=== PATIENT | male | born 2005 | race Caucasian/White ===

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

== ENCOUNTER 2023-08-22 11:27 | Emergency (ER) | payer OTHER, SELFPAY ==
[2023-08-22 11:31] VITALS: BP 135/72; PULSE 73; O2SAT 98
[2023-08-22 12:45] VITALS: BP 122/83; PULSE 70; RESP 18; TEMP 36.3; O2SAT 100; BMI 28.7
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
[2023-08-22 14:26] LABS: IDNOW Serial# 58CA691E; Strep A Nucleic Acid Positive (Negative)
[2023-08-22 14:49] LABS: COVID-19 Test Negative (Negative); IDNOW Serial# 08D9AD1C; IDNOW Serial# 152EDE1D; Influenza A Negative (Negative); Influenza B2 Negative (Negative)
[2023-08-22 16:00] VITALS: RESP 16
--- NOTE | 2023-08-22 16:51 | PC.NURSE ---
called pts mom and informed her pt is going home,awaiting ambulance ride back home.
== END 2023-08-22 17:51 | disposition home or self-care (01) ==
PROVIDERS: Physician Assistant Medical; Emergency Provider Emergency Medicine
DX: J02.0 Streptococcal pharyngitis (principal); L29.9 Pruritus, unspecified; B86 Scabies; Z11.52 Encounter for screening for COVID-19
CPT/HCPCS: 87502; 87635; 87651; 99283

== ENCOUNTER 2023-11-02 18:37 | Emergency (ER) | payer OTHER, SELFPAY ==
[2023-11-02 18:41] VITALS: BP 126/75; PULSE 73; RESP 16; TEMP 36.2; O2SAT 96; BMI 29.0
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
--- NOTE | 2023-11-02 19:30 | PC.NURSE ---
patient brought in from waiting room im here for some increased depression , patient appears in no distress.
[2023-11-02 19:39] LABS: Appearance Urine Clear; Color Urine Yellow; Glucose Urine UA Negative (Negative); Leukocyte Esterase Urine Negative (Negative); Nitrite Urine Negative (Negative); PH 5.5 (5.0-9.0); Urine Blood Negative (Negative); Urine Ketones 15 mg/dL (Negative); Urine Protein Negative (Neg-Trace)
[2023-11-02 19:47] LABS: Amphetamine Screen Urine Not Detected (Not Detect); Barbiturates, Urine Not Detected (Not Detect); Benzodiazepines Screen Urine Not Detected (Not Detect); Buprenorphine Scr Not Detected (Not Detect); Cannabinoid Screen Urine Not Detected (Not Detect); Cocaine Screen Urine POSITIVE (Not Detect); Fentanyl, urine Not Detected (Not Detect); Methadone Screen, Urine Not Detected (Not Detect); Opiate Screen Urine Not Detected (Not Detect); Oxycodone Screen Urine Not Detected (Not Detect); Phencyclidine Screen Urine Not Detected (Not Detect)
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
[2023-11-02 21:47] LABS: MANUAL DIFF FLAG NO
[2023-11-02 21:48] LABS: Basophils Absolute Auto 0.1 X10*3/uL (0.0-0.2); Basophils Percent Auto 0.6 % (0-2); Eosinophils Absolute Auto 0.7 X10*3/uL (0.0-0.4); Eosinophils Percent Auto 6.4 % (0-4); Hematocrit 39.9 % (42.0-52.0); Hemoglobin 14.1 g/dl (14.0-18.0); Imm Gran Abs Auto 0.03 X10*3/uL (0.00-0.03); Imm Gran Pct Auto 0.3 % (0.0-0.4); Lymphocytes Absolute Auto 2.6 X10*3/uL (1.2-4.9); Mean Corpuscular HGB Conc 35.3 g/dl (31.0-36.0); Mean Corpuscular Hemoglobin 30.1 pg (27.0-33.0); Mean Corpuscular Volume 85.3 fL (80.0-98.0); Mean Platelet Volume 9.5 fL (9.4-12.4); Monocytes Absolute Auto 0.8 X10*3/uL (0.1-1.2); Monocytes Percent Auto 7.4 % (2-11); Neutrophils Absolute Auto 6.3 x10*3/uL (2.0-8.3); Neutrophils Percent Auto 60.3 % (45-73); Platelet Count 258 X10*3/uL (160-400); Red Blood Count 4.68 X10*6/uL (4.60-5.80); Red Cell Distribution Width 12.2 % (11.0-16.0); White Blood Count 10.4 X10*3/uL (4.8-10.8)
[2023-11-02 22:05] LABS: Alanine Aminotransferase 30 U/L (0-40); Albumin Level 4.5 g/dL (3.5-5.0); Alkaline Phosphatase 82 U/L (39-117); Anion Gap 12 (12-20); Aspartate Amino Transferase 23 U/L (5-37); Bilirubin Total 1.3 mg/dL (0.0-1.0); Blood Urea Nitrogen 8 mg/dL (9-16); Calcium 9.8 mg/dL (8.4-10.2); Carbon Dioxide 26 mmol/L (22-29); Chloride 105 mmol/L (96-108); Creatinine Clr Calc Pharmacy 174.3; Estimated Glomerular Filt Rate > 60; Ethanol < 10 mg/dL; Glucose Random 79 mg/dL (60-115); Lipase 17 U/L (8-78); Potassium 3.1 mmol/L (3.3-5.1); Salicylate < 5.0 mg/dL (15-30); Sodium 140 mmol/L (135-145); Total Protein 7.6 g/dL (6.5-8.0)
--- NOTE | 2023-11-03 03:49 | PC.NURSE ---
Took over care from Kiera, pt is sleeping at this time.
[2023-11-03 05:48] VITALS: BP 118/77; PULSE 68; RESP 17; TEMP 36.4; O2SAT 99
--- NOTE | 2023-11-03 06:13 | PC.NURSE ---
Notified provider of skin concern and pt itching his scalp. Provider will come to assess.
--- NOTE | 2023-11-03 06:16 | PC.NURSE ---
Pt is sleeping , no sign of restlessness.
[2023-11-03 08:17] VITALS: BP 136/87; PULSE 94; RESP 16; TEMP 36.9; O2SAT 98
[2023-11-03] MEDS: diphenhydrAMINE HCL 25 MG CAPSULE 50 MG PO (10:12)
[2023-11-03] MEDS: Potassium Chloride Packet 20 MEQ PACKET 40 MEQ PO (10:13)
[2023-11-03] MEDS: Hydrocortisone 1 % Ointment 28.35 GM TUBE 1 APPL TOPICAL (10:20)
[2023-11-03 14:03] VITALS: BP 136/87; PULSE 94; RESP 16; TEMP 36.9; O2SAT 98
== END 2023-11-03 14:04 | disposition home or self-care (01) ==
PROVIDERS: Physician Assistant Medical; Emergency Provider Emergency Medicine
DX: F33.1 Major depressive disorder, recurrent, moderate (principal); Z79.899 Other long term (current) drug therapy
CPT/HCPCS: 36415; 80053; 80179; 80307; 81003; 82550; 83690; 83735; 85025; 99284; S9485

== ENCOUNTER 2024-01-11 17:32 | Emergency (ER) | payer OTHER, SELFPAY ==
[2024-01-11 17:48] VITALS: BP 140/80; BP 151/78; PULSE 83; PULSE 90; RESP 16; TEMP 36.8; O2SAT 95; O2SAT 96; BMI 27.5
[2024-01-11 18:00] VITALS: BP 151/78; PULSE 83; RESP 16; TEMP 36.8; O2SAT 95
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
[2024-01-11 18:31] LABS: MANUAL DIFF FLAG NO
[2024-01-11 18:37] LABS: Appearance Urine Clear; Color Urine Dark Yellow; Glucose Urine UA Negative (Negative); Leukocyte Esterase Urine Negative (Negative); Nitrite Urine Negative (Negative); PH 5.5 (5.0-9.0); Specific Gravity - Urine >= 1.030 (1.005-1.025); Urine Blood Negative (Negative); Urine Ketones 15 mg/dL (Negative); Urine Protein Negative (Neg-Trace)
[2024-01-11 18:39] LABS: Basophils Absolute Auto 0.1 X10*3/uL (0.0-0.2); Basophils Percent Auto 1.4 % (0-2); Eosinophils Absolute Auto 0.9 X10*3/uL (0.0-0.4); Eosinophils Percent Auto 11.8 % (0-4); Hematocrit 40.7 % (42.0-52.0); Hemoglobin 14.6 g/dl (14.0-18.0); Imm Gran Abs Auto 0.03 X10*3/uL (0.00-0.03); Imm Gran Pct Auto 0.4 % (0.0-0.4); Lymphocytes Percent Auto 27.7 % (20-40); Mean Corpuscular HGB Conc 35.9 g/dl (31.0-36.0); Mean Corpuscular Hemoglobin 30.9 pg (27.0-33.0); Monocytes Absolute Auto 0.6 X10*3/uL (0.1-1.2); Monocytes Percent Auto 7.6 % (2-11); Neutrophils Absolute Auto 3.7 x10*3/uL (2.0-8.3); Neutrophils Percent Auto 51.1 % (45-73); Platelet Count 230 X10*3/uL (160-400); Red Blood Count 4.73 X10*6/uL (4.60-5.80); Red Cell Distribution Width 12.3 % (11.0-16.0); White Blood Count 7.2 X10*3/uL (4.8-10.8)
[2024-01-11 18:49] LABS: Amphetamine Screen Urine Not Detected (Not Detect); Barbiturates, Urine Not Detected (Not Detect); Benzodiazepines Screen Urine Not Detected (Not Detect); Buprenorphine Scr Not Detected (Not Detect); Cannabinoid Screen Urine Not Detected (Not Detect); Cocaine Screen Urine POSITIVE (Not Detect); Fentanyl, urine Not Detected (Not Detect); Methadone Screen, Urine Not Detected (Not Detect); Opiate Screen Urine Not Detected (Not Detect); Oxycodone Screen Urine Not Detected (Not Detect); Phencyclidine Screen Urine Not Detected (Not Detect)
[2024-01-11 18:54] LABS: Alanine Aminotransferase 28 U/L (0-40); Albumin Level 4.6 g/dL (3.5-5.0); Alkaline Phosphatase 84 U/L (39-117); Anion Gap 15 (12-20); Aspartate Amino Transferase 27 U/L (5-37); Bilirubin Total 0.6 mg/dL (0.0-1.0); Blood Urea Nitrogen 13 mg/dL (9-16); Calcium 9.8 mg/dL (8.4-10.2); Carbon Dioxide 21 mmol/L (22-29); Chloride 109 mmol/L (96-108); Creatinine Clr Calc Pharmacy 167.9; Estimated Glomerular Filt Rate > 60; Ethanol < 10 mg/dL; Glucose Random 88 mg/dL (60-115); Sodium 141 mmol/L (135-145); Total Protein 7.9 g/dL (6.5-8.0)
[2024-01-11 22:00] VITALS: RESP 16
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
--- NOTE | 2024-01-12 06:17 | PC.NURSE ---
Patient slept through the night, no distress observed/reported, med rec completed/pending provider's approval, disposition per care team is [facility] follow up, VSS, no behavior and safety issue, will continue to monitor
[2024-01-12 08:02] VITALS: BP 121/79; PULSE 72; RESP 14; TEMP 36.6; O2SAT 97
[2024-01-12 09:36] VITALS: BP 130/60; PULSE 80; RESP 14; TEMP 36.8; O2SAT 98
--- NOTE | 2024-01-12 11:04 | MHC.CARE ---
RAD Team made a referral for this PT, to [facility] for Outpatient Services. Will contact to verify confirmation.
== END 2024-01-12 09:39 | disposition home or self-care (01) ==
PROVIDERS: Emergency Provider Internal Medicine
DX: F32.A Depression, unspecified (principal); F84.0 Autistic disorder; Z63.8 Other specified problems related to primary support group; Z62.820 Parent-biological child conflict
CPT/HCPCS: 36415; 80053; 80307; 81003; 85025; 99285; S9485

== ENCOUNTER 2024-01-18 02:56 | Inpatient (IN) | payer OTHER, SELFPAY ==
--- NOTE | 2024-01-18 | ECG_ITS ---
Test Reason : RULE OUT QTC PROLONGATION Blood Pressure : / mmHG Vent. Rate : 051 BPM Atrial Rate : 051 BPM P-R Int : 142 ms QRS Dur : 084 ms QT Int : 432 ms P-R-T Axes : 018 078 037 degrees QTc Int : 398 ms Sinus bradycardia Otherwise normal ECG When compared with ECG of 05-OCT-2022 13:56, No significant change was found Referred By: Noni Alcantar Electronically Signed By:IDRIS REYES
[2024-01-18 03:08] VITALS: BP 122/74; BP 132/74; PULSE 74; PULSE 80; RESP 18; TEMP 36.4; O2SAT 100; O2SAT 98; BMI 28.2
--- NOTE | 2024-01-18 04:13 | ED.PSYCH ---
HPI - Psych General Chief Complaint: Psychiatric Symptoms Stated Complaint: crisis Time Seen by Provider: 01/18/24 04:13 Source: patient and EMS Mode of arrival: EMS Limitations: no limitations History of Present Illness ED Provider: Dr. Noni Alcantar HPI Narrative: Patient comes to the emergency room via ambulance. Patient states that he is under lot of stress, states that his mother recently had a stroke and his mother's sick at home. According to EMS, earlier today, the EMS picked up the patient at his house, the mother reported that the patient may gestures of suicide attempt by putting a clothes sheet rock hanger around his neck as ingesting he was going to hang himself. Patient states that he does have suicidal thoughts, stating that his mother dictates his suicidal thoughts. Patient admits to using crack cocaine and alcohol Related Data Home Medications ?Medication ?Instructions ?Recorded ?Confirmed fluoxetine 20 mg tablet 20 mg PO DAILY 05/02/22 01/11/24 risperidone 2 mg tablet 2 mg PO BEDTIME 11/03/23 01/11/24 Allergies Allergy/AdvReac Type Severity Reaction Status Date / Time No Known Allergies Allergy Verified 01/18/24 03:11 Review of Systems Review of Systems: Constitutional : No Weight loss, No Fever, No Chills, No Night Sweats, No Fatigue, No Malaise ENT/Mouth : No Hearing loss, No Ear Pain, No Nasal Congestion, No Sinus Pain, No Hoarseness, No sore throat, No Rhinorrhea, No Swallowing Difficulty Eyes: No Eye Pain, No Swelling, No Redness, No Foreign Body, No Discharge, No Vision Changes Cardiovascular : No Chest Pain, No SOB, No Dyspnea on Exertion, No Orthopnea, No Edema, No Palpitations Respiratory : No Cough, No Sputum, No Wheezing, No Smoke Exposure, No Dyspnea Gastrointestinal : No Nausea, No Vomiting, No Diarrhea, No Constipation, No abdominal Pain, No Hematochezia, No Melena Genitourinary : no irregular bleeding, No Dysuria, No Urinary Frequency, No Hematuria, No Urinary Incontinence, No Urgency, No Flank Pain, No Urinary Flow Changes, No Hesitancy Musculoskeletal : No joint pain, No Myalgias, No Joint Swelling Skin : No Skin Lesions, No rash Neuro : No Weakness, No Numbness, No Paresthesias, No Loss of Consciousness, No Dizziness, No Headache Psych : Complaining of anxiety, suicidal thoughts, admits to using crack cocaine and alcohol Heme/Lymph: No Bruising, No Bleeding,No Lymphadenopathy Endocrine : No Polyuria, No Polydipsia, No Temperature Intolerance PMF Past Medical History Medical History Substance abuse Autism Social History Social History Household Members: Family Housing: Apartment Do you presently have visiting nurse or other home services: No Comment: [phone] Patient Tobacco Use Status: Never used Tobacco Tobacco use type: Cigarette Cigarettes Per Day: 5 Years Smoked: 1 e-Cigarette/Vaping Use: Never Used Second Hand Smoke Exposure: Yes Substance Use Type: Crack/Cocaine and Caffiene Advance Directives: No Advance Directives Information Provided: Yes Do you have a plan to hurt others: No Plan service: No Current occupational status: student Sexual orientation: Don't Know Physical Exam Vital Signs: Vital Signs: Last Vital Signs Temp 97.6 F 01/18/24 03:08 Pulse 74 01/18/24 03:08 Resp 18 01/18/24 03:08 BP 122/74 01/18/24 03:08 Pulse Ox 98 01/18/24 03:08 O2 Del Method Room Air 01/18/24 03:08 BMI result Body Mass Index 28.2 Const: Other: Appearance: Alert. Oriented X3. No acute distress. Eyes: Pupils equal, round and reactive to light. ENT: Pharynx normal. Neck: Normal inspection. Neck supple. No lymph nodes noted. No crepitus CVS: Normal heart rate and rhythm. Pulses normal. Normal S1 and S2 Respiratory: No respiratory distress. Breath sounds normal. No Wheezing. No rales Abdomen: Soft and nontender. No rigidity. No distention. Skin: Skin warm and dry. Normal skin color. Normal skin turgor. Patient has multiple excoriations from eczema in both arms Extremities: No lower extremity edema. No Lacerations. No Rash Neuro: Oriented X 3. No motor deficit. No sensory deficit. Moving all extremities. No slurred speech. CN 2 through 12 grossly intact Psych: calm, cooperative, normal affect Course Course Course Narrative: -all of patient's labs pending -patient is on a Section 12 started in the community -patient was given hydrocortisone topical for his arms -care team consult pending -physician observation started at 04:17 Medical Decision Making Differential Diagnosis Differential Diagnoses: The differential diagnosis associated with the presentation includes (Polysubstance abuse, alcohol abuse, anxiety, depression) Admission/Observation Consideration of admission/observation: Escalation of care including admission/observation considered (Patient is on a Section 12 waiting to be seen by the care team to determine his disposition) Critical Care Time Critical Care Time Critical Care Time: Yes Total Critical Care Time: 30 Attestation: I have personally provided critical care time. Time includes review of lab data, radiology results, discussion with consultants, and monitoring for potential decompensation. Intervention performed as documented. Discharge Plan Discharge Clinical Impression: Acute anxiety, Suicidal ideation Patient Disposition: Still a Patient Prescriptions: No Action fluoxetine 20 mg Tablet 20 mg PO DAILY risperidone 2 mg tablet 2 mg PO BEDTIME Print Language: [place]
[2024-01-18 04:38] LABS: Basophils Absolute Auto 0.1 X10*3/uL (0.0-0.2); Basophils Percent Auto 1.4 % (0-2); Eosinophils Percent Auto 11.2 % (0-4); Hematocrit 39.7 % (42.0-52.0); Hemoglobin 14.3 g/dl (14.0-18.0); Imm Gran Abs Auto 0.02 X10*3/uL (0.00-0.03); Imm Gran Pct Auto 0.2 % (0.0-0.4); Lymphocytes Absolute Auto 2.7 X10*3/uL (1.2-4.9); Lymphocytes Percent Auto 31.2 % (20-40); MANUAL DIFF FLAG NO; Mean Corpuscular Hemoglobin 31.1 pg (27.0-33.0); Mean Corpuscular Volume 86.3 fL (80.0-98.0); Mean Platelet Volume 9.6 fL (9.4-12.4); Monocytes Absolute Auto 0.8 X10*3/uL (0.1-1.2); Neutrophils Absolute Auto 4.1 x10*3/uL (2.0-8.3); Platelet Count 209 X10*3/uL (160-400); Red Cell Distribution Width 12.6 % (11.0-16.0); White Blood Count 8.6 X10*3/uL (4.8-10.8)
[2024-01-18 04:58] LABS: Appearance Urine Clear; Color Urine Dark Yellow; Glucose Urine UA Negative (Negative); Leukocyte Esterase Urine Trace (Negative); Nitrite Urine Negative (Negative); Specific Gravity - Urine >= 1.030 (1.005-1.025); UMIC TRIGGER UACC YES; Urine Blood Negative (Negative); Urine Ketones Trace mg/dL (Negative); Urine Protein Trace mg/dL (Neg-Trace)
[2024-01-18 05:01] LABS: Bacteria Urine None Seen (None Seen); Hyaline Casts Urine 0-2 /LPF (0-2); RBC Urine 0-2 /HPF (0-2); Squamous Epithelial Cell Urine 0-2 /HPF (0-2); WBC Urine 0-5 /HPF (0-5)
[2024-01-18 05:02] LABS: Alanine Aminotransferase 24 U/L (0-40); Albumin Level 4.4 g/dL (3.5-5.0); Alkaline Phosphatase 76 U/L (39-117); Anion Gap 14 (12-20); Aspartate Amino Transferase 29 U/L (5-37); Bilirubin Direct 0.4 mg/dL (0.0-0.5); Bilirubin Total 1.2 mg/dL (0.0-1.0); Blood Urea Nitrogen 11 mg/dL (9-16); Carbon Dioxide 24 mmol/L (22-29); Chloride 108 mmol/L (96-108); Creatinine Clr Calc Pharmacy 158.5; Estimated Glomerular Filt Rate > 60; Ethanol < 10 mg/dL; Glucose Random 84 mg/dL (60-115); Potassium 3.6 mmol/L (3.3-5.1); Sodium 142 mmol/L (135-145); Total Protein 7.4 g/dL (6.5-8.0)
[2024-01-18 05:08] LABS: Amphetamine Screen Urine Not Detected (Not Detect); Barbiturates, Urine Not Detected (Not Detect); Benzodiazepines Screen Urine Not Detected (Not Detect); Buprenorphine Scr Not Detected (Not Detect); Cannabinoid Screen Urine Not Detected (Not Detect); Cocaine Screen Urine POSITIVE (Not Detect); Fentanyl, urine Not Detected (Not Detect); Methadone Screen, Urine Not Detected (Not Detect); Opiate Screen Urine Not Detected (Not Detect); Oxycodone Screen Urine Not Detected (Not Detect); Phencyclidine Screen Urine Not Detected (Not Detect)
--- NOTE | 2024-01-18 08:53 | PC.NURSE ---
Assumed care of patient at 0645, patient appears to be in no apparent distress this am, ambulating with steady gait around BH pod, respirations even and unlabored, offers no complaints to this RN. Continue plan of care for care team [place]
--- NOTE | 2024-01-18 14:02 | MHC.EDTECH ---
patient asked for snack. Pudding provided.
[2024-01-18 16:50] VITALS: BP 137/78; PULSE 71; RESP 16; TEMP 36.8; O2SAT 98
[2024-01-18 18:28] VITALS: BMI 26.7
--- NOTE | 2024-01-18 18:52 | PC.NURSE ---
pt arrived on the unit at 1645 on a CV. Skin check performed, vitals obtained and pt oriented to unit. Pt was pleasant, calm, and cooperative during admission interview. Pt reports he lives w/ mom and states, My mother got sick and it it really messed me up. I've been depressed for a little while but its already getting better. I;ve talked to some of the nurses and patients downstairs and it's helped . Pt denies current anxiety/si/hi/avh and reports some depression. He reports occasional marijuana and cocaine use, last use 'a few days ago . Pt has HX of unspecified impulse disorder and ASD
[2024-01-18] MEDS: traZODone HCL 50 MG TABLET PO (21:20)
[2024-01-19 08:16] VITALS: BP 108/61; PULSE 57; RESP 16; TEMP 36.6; O2SAT 97
[2024-01-19] MEDS: FLUoxetine HCl 20 MG CAPSULE PO (08:41)
[2024-01-19 08:53] LABS: Cholesterol 131 mg/dL (<200); HDL Cholesterol 46 mg/dL (>40); LDL Cholesterol Calculated 59 mg/dL (<100); Magnesium 2.3 mg/dL (1.6-2.6); Triglycerides 133 mg/dL (<150)
[2024-01-19 08:59] LABS: Estimated Average Glucose 100 mg/dL; Hemoglobin A1c % 5.1 % (<6.0)
[2024-01-19 09:10] LABS: Free T4 (Free Thyroxine) 0.84 ng/dL (0.71-1.85); Thyroid Stimulating Hormone 1.14 uIU/mL (0.32-4.0)
[2024-01-19 09:22] LABS: Folate 5.7 ng/mL (> or = 4.0); Vitamin B12 403 pg/mL (200-900)
--- NOTE | 2024-01-19 10:35 | P.HPPS_ITS ---
HPI Date of Service: 01/19/24 Chief Complaint: Depression,SI,crack cocaine use,alcohol use Sources of Information: patient interviewed, chart reviewed and crisis/core team assessment reviewed HPI Subjective Notes: [place] Warning and Conditional Voluntary Narrative: Patient is a 18-year-old male with history of autism, depression, intermittent cocaine abuse who presents to the hospital for suicidal ideation in the face of his mother/primary school psychometrist becoming sick. Patient is somewhat of a limited historian due to autism. He says that he was feeling very depressed at home 4 weeks, because his mother was sick. He said he became suicidal and had the thought to hang himself but he was too afraid to . Patient says that he no longer has any suicidal ideation and says I felt better when I got to the hospital. Patient reports that he takes Prozac and trazodone. He says he stopped Risperdal because it made him too tired. He does not want it anymore and does not think he needs it. Patient reports he took it to help him with his mood swings and it did help however feels that he is doing better now and does not need it. He does however agree to have it changed to a p.r.n. and available if he starts to get angry. ED note reports his mother recently had a stroke; According to EMS, earlier today, mother reported that the patient made SI gestures by putting a clothes flitch hanger around his neck as if he was going to hang himself. Past Psychiatric History: Past hospitalization 09/2022 on [facility] for agitation, yelling and breaking things; reports says he had a knife and was threatening others; attempted to strangle himself with a bed sheet Assessed by crisis 2021 in the ED for a couple nights for SI/HI. SA: a couple times. reports first was in 8th grade, most recent was in ED on the way in the hospital for the present admission. has only ever tried via strangulation. SIB: denies outpt: no h/o outpt mental health Tx. material control clerk dose meds. Medical Evaluation Reviewed: Yes [facility] Medical History (Updated 01/19/24 @ 18:31 by Edvin Otero MD) MDD (major depressive disorder), recurrent severe, without psychosis Substance abuse Autism Family History: father - h/o crack cocaine, tobacco mother - tobacco Social History: lives with mother in an apartment in [place]. dropped out of school after 10th grade. does not work. born in [place] and raised in [place]. has no contact with his father. Substance History: Intermittent cocaine abuse Trauma History: report h/o bullying at school Diagnostics Vital Signs (24Hr): Vital Signs - 24 hr 01/18/24 16:50 Temperature 98.3 F Pulse Rate 71 Respiratory Rate 16 Blood Pressure 137/78 Pulse Oximetry 98 Oxygen Delivery Method Room Air BMI result Body Mass Index 26.7 Labs 01/18/24 04:33 01/18/24 04:32 Labs: Laboratory Results - last 48 hr 01/18/24 01/18/24 01/18/24 04:32 04:33 04:47 WBC 8.6 RBC 4.60 Hgb 14.3 Hct 39.7 L MCV 86.3 MCH 31.1 MCHC 36.0 RDW 12.6 Plt Count 209 MPV 9.6 Immature Gran % (Auto) 0.2 Neut % (Auto) 47.0 Lymph % (Auto) 31.2 [place] % (Auto) 9.0 Eos % (Auto) 11.2 H Baso % (Auto) 1.4 Lymph # (Auto) 2.7 [place] # (Auto) 0.8 Eos # (Auto) 1.0 H Baso # (Auto) 0.1 Abs Immat Gran (auto) 0.02 Absolute Neuts (auto) 4.1 Absolute Nucleated RBC 0.000 Nucleated RBC % (auto) 0.0 Sodium 142 Potassium 3.6 Chloride 108 Carbon Dioxide 24 Anion Gap 14 BUN 11 Creatinine 0.76 Estim Creat Clear Calc 158.5 Estimated GFR > 60 Random Glucose 84 Estimat Average Glucose Hemoglobin A1c % Calcium 10.0 Magnesium Total Bilirubin 1.2 H Direct Bilirubin 0.4 AST 29 ALT 24 Alkaline Phosphatase 76 Total Protein 7.4 Albumin 4.4 Triglycerides Cholesterol LDL Cholesterol, Calc HDL Cholesterol Vitamin B12 Folate TSH Free T4 Urine Color Urine Appearance Urine pH Ur Specific [place] Urine Protein Urine Glucose (UA) Urine Ketones Urine Blood Urine Nitrite Ur Leukocyte Esterase Urine RBC Urine WBC Ur Squamous Epith Cells Urine Bacteria Hyaline Casts Urine Opiates Screen Not Detected Ur Buprenorphine Scrn Not Detected Ur Oxycodone Screen Not Detected Urine Methadone Screen Not Detected Urine Fentanyl Screen Not Detected Ur Barbiturates Screen Not Detected Ur Phencyclidine Scrn Not Detected Ur Amphetamines Screen Not Detected U Benzodiazepines Scrn Not Detected Urine Cocaine Screen POSITIVE H U Marijuana (THC) Screen Not Detected Ethyl Alcohol < 10 01/18/24 01/19/24 04:51 07:58 WBC RBC Hgb Hct MCV MCH MCHC RDW Plt Count MPV Immature Gran % (Auto) Neut % (Auto) Lymph % (Auto) [place] % (Auto) Eos % (Auto) Baso % (Auto) Lymph # (Auto) [place] # (Auto) Eos # (Auto) Baso # (Auto) Abs Immat Gran (auto) Absolute Neuts (auto) Absolute Nucleated RBC Nucleated RBC % (auto) Sodium Potassium Chloride Carbon Dioxide Anion Gap BUN Creatinine Estim Creat Clear Calc Estimated GFR Random Glucose Estimat Average Glucose 100 Hemoglobin A1c % 5.1 Calcium Magnesium 2.3 Total Bilirubin Direct Bilirubin AST ALT Alkaline Phosphatase Total Protein Albumin Triglycerides 133 Cholesterol 131 LDL Cholesterol, Calc 59 HDL Cholesterol 46 Vitamin B12 403 Folate 5.7 TSH 1.14 Free T4 0.84 Urine Color Dark Yellow Urine Appearance Clear Urine pH 6.0 Ur Specific [place] >= 1.030 H Urine Protein Trace Urine Glucose (UA) Negative Urine Ketones Trace Urine Blood Negative Urine Nitrite Negative Ur Leukocyte Esterase Trace H Urine RBC 0-2 Urine WBC 0-5 Ur Squamous Epith Cells 0-2 Urine Bacteria None Seen Hyaline Casts 0-2 Urine Opiates Screen Ur Buprenorphine Scrn Ur Oxycodone Screen Urine Methadone Screen Urine Fentanyl Screen Ur Barbiturates Screen Ur Phencyclidine Scrn Ur Amphetamines Screen U Benzodiazepines Scrn Urine Cocaine Screen U Marijuana (THC) Screen Ethyl Alcohol Meds/Allergies Meds Home Medications ?Medication ?Instructions ?Recorded ?Confirmed ?Type fluoxetine 20 mg tablet 20 mg PO DAILY 05/02/22 01/18/24 History Allergies Allergies Allergy/AdvReac Type Severity Reaction Status Date / Time No Known Allergies Allergy Verified 01/18/24 03:11 Mental Status Exam Mental Status Exam Narrative: Pt is alert and oriented; behavior is cooperative, friendly and calm; patient is not in distress; dressed in casual attire with unkempt hair but adequate hygiene; mood is described as good and affect congruent; eye contact appropriate; Speech is loud, but normal rate; staccato; not pressured; no psychomotor agitation/retardation present; thought process is concrete but goal oriented and logical. Thought content is on his mother's illness; otherwise pertinent to relevant topics and without any delusional content, paranoid ideations or grandiosity; denies any SI/HI. There is no evidence of perceptual disturbance. Patients insight and judgment impaired but possibly back to baseline. Assessment & Plan Assessment & Plan (1) Autism spectrum disorder: Status: Acute Code(s): F84.0 - Autistic disorder (2) MDD (major depressive disorder), recurrent severe, without psychosis: Status: Acute Code(s): F33.2 - Major depressive disorder, recurrent severe without psychotic features (3) Impulse control disorder, unspecified: Status: Acute Code(s): F63.9 - Impulse disorder, unspecified Plan Patient is a 18-year-old male with history of autism, depression, intermittent cocaine abuse who presents to the hospital for suicidal ideation in the face of his mother/primary school psychometrist becoming sick. Patient is somewhat of a limited historian due to autism. He says that he was feeling very depressed at home 4 weeks, because his mother was sick. He said he became suicidal and had the thought to hang himself but he was too afraid to . Patient says that he no longer has any suicidal ideation and says I felt better when I got to the hospital. Patient reports that he takes Prozac and trazodone. He says he stopped Risperdal because it made him too tired. He does not want it anymore and does not think he needs it. Patient reports he took it to help him with his mood swings and it did help however feels that he is doing better now and does not need it. He does however agree to have it changed to a p.r.n. and available if he starts to get angry. -ED note reports his mother recently had a stroke; According to EMS, earlier today, mother reported that the patient made SI gestures by putting a clothes flitch hanger around his neck as if he was going to hang himself. Clinical reasoning/formulation: Patient has autism and intermittent mood lability, becoming emotionally reactive and sometimes dangerous. It has not clear if he has things under control enough to handle Risperdal just as a p.r.n. or if he needs a scheduled; however at this time he is refusing it other than as needed. He said he knows he will not be depressed when he goes home because his mother is now able to help him; it has not clear if patient understands mother's medical illness and if she is able to attend to him as she has in the past. Will gather collateral. Of note, he has been with appropriate behavior and impulse control on the unit, polite and appropriate with peers and staff. Plan: CV Q 15 minute checks Continue Prozac 20 mg daily Risperdal 1 mg b.i.d. p.r.n. for agitation; Patient refuses scheduled Risperdal however agrees to have it changed to p.r.n. Gather collateral Patient educated on: diagnosis, medication risk/benefits and therapeutic strategies Informed Consent: understands, does not understand and further education needed Reason for continued inpatient stay Substantial Risk for: rapid decompensation Statement Statement: I have reviewed the history and physical and performed a pertinent examination on my patient. No changes have occurred unless specified. If the History and Physical was not performed prior to admission, the Hospitalist's service will be consulted for completing the admission physical. Time Spent With Patient Time: Total time managing care of this patient today ____ minutes.
[2024-01-19 20:00] VITALS: BP 102/60; PULSE 69; RESP 16; TEMP 36.3; O2SAT 97
[2024-01-20 07:58] VITALS: BP 119/67; PULSE 61; RESP 18; TEMP 36.4; O2SAT 98
[2024-01-20] MEDS: FLUoxetine HCl 20 MG CAPSULE PO (08:32)
[2024-01-20 20:00] VITALS: BP 110/60; PULSE 69; TEMP 36.2; O2SAT 98
--- NOTE | 2024-01-20 23:03 | HO.PSYCHPN ---
Subjective Subjective Date of Service: 01/20/24 Reason For Visit: Depression,SI,crack cocaine use,alcohol use Interim History: met with patient; discussed with team pt says mood is great and that he's sleeping well. Says no anger problems. Denies any SI or AVH. In group, staff reported he referenced masturbation and how he knows not to do in public. Denies cocaine use, though in UDS. Pt has been in good behavioral/impulse control. Mental Status Exam Mental Status Exam Narrative: Pt is alert and oriented; behavior is cooperative, friendly and calm; patient is not in distress; dressed in casual attire with unkempt hair but adequate hygiene; mood is described as good and affect congruent; eye contact appropriate; Speech is loud, but normal rate; staccato; not pressured; no psychomotor agitation/retardation present; thought process is concrete but goal oriented and logical. Thought content is on his mother's illness; otherwise pertinent to relevant topics and without any delusional content, paranoid ideations or grandiosity; denies any SI/HI. There is no evidence of perceptual disturbance. Patients insight and judgment impaired but possibly back to baseline. Diagnostics Vital Signs (24Hr): Vital Signs - 24 hr 01/20/24 07:58 01/20/24 20:00 Temperature 97.5 F 97.1 F Pulse Rate 61 69 Respiratory Rate 18 Blood Pressure 119/67 110/60 Pulse Oximetry 98 98 Oxygen Delivery Method Room Air Room Air BMI result Body Mass Index 26.7 Labs 01/18/24 04:33 01/18/24 04:32 Labs: Laboratory Results - last 48 hr 01/19/24 07:58 Estimat Average Glucose 100 Hemoglobin A1c % 5.1 Magnesium 2.3 Triglycerides 133 Cholesterol 131 LDL Cholesterol, Calc 59 HDL Cholesterol 46 Vitamin B12 403 Folate 5.7 TSH 1.14 Free T4 0.84 Medications Medications Current Medications Acetaminophen (Acetaminophen 325 Mg Tablet) 650 mg PO Q6H PRN PRN Reason: Headache/Pain Mild Scale (1-3) Al Hydroxide/Mg Hydroxide (Magnesium Hydrox/Alum Hydrox 30 Ml Oral.Susp) 30 ml PO Q6H PRN PRN Reason: Heartburn/Nausea Fluoxetine HCl (Fluoxetine Hcl 20 Mg Capsule) 20 mg PO DAILY [facility] Last Admin: 01/20/24 08:32 Dose: 20 mg Hydroxyzine HCl (Hydroxyzine Hcl 25 Mg Tablet) 25 mg PO Q6H PRN PRN Reason: Anxiety Magnesium Hydroxide (Milk Of Magnesia 30 Ml Oral.Susp) 30 ml PO DAILY PRN PRN Reason: Constipation Multi-Ingred Cream/Lotion/Oil/Oint (Mineral Oil/Petrolatum,White 106 Gm Tube) 1 appl TOPICAL TID PRN; Protocol PRN Reason: dry skin Nicotine (Nicotine 21 Mg Patch.Td24) 21 mg TRANSDERMA DAILY PRN PRN Reason: nicotine cravings Nicotine Polacrilex (Nicotine Polacrilex 2 Mg Gum) 4 mg BUCCAL Q2H PRN PRN Reason: Nicotine Cravings Risperidone (Risperidone 1 Mg Tablet) 1 mg PO TID PRN PRN Reason: anger/agitation Trazodone HCl (Trazodone Hcl 50 Mg Tablet) 50 mg PO BEDTIME MRX1 PRN PRN Reason: Insomnia Last Admin: 01/18/24 21:20 Dose: 50 mg Allergies Allergies Allergy/AdvReac Type Severity Reaction Status Date / Time No Known Allergies Allergy Verified 01/18/24 03:11 Assessment & Plan Assessment & Plan (1) Autism spectrum disorder: Status: Acute Code(s): F84.0 - Autistic disorder (2) MDD (major depressive disorder), recurrent severe, without psychosis: Status: Acute Code(s): F33.2 - Major depressive disorder, recurrent severe without psychotic features (3) Impulse control disorder, unspecified: Status: Acute Code(s): F63.9 - Impulse disorder, unspecified Plan Patient is a 18-year-old male with history of autism, depression, intermittent cocaine abuse who presents to the hospital for suicidal ideation in the face of his mother/primary investigative analyst becoming sick. Patient is somewhat of a limited historian due to autism. He says that he was feeling very depressed at home 4 weeks, because his mother was sick. He said he became suicidal and had the thought to hang himself but he was too afraid to . Patient says that he no longer has any suicidal ideation and says I felt better when I got to the hospital. Patient reports that he takes Prozac and trazodone. He says he stopped Risperdal because it made him too tired. He does not want it anymore and does not think he needs it. Patient reports he took it to help him with his mood swings and it did help however feels that he is doing better now and does not need it. He does however agree to have it changed to a p.r.n. and available if he starts to get angry. -ED note reports his mother recently had a stroke; According to EMS, earlier today, mother reported that the patient made SI gestures by putting a clothes knife changer around his neck as if he was going to hang himself. Clinical reasoning/formulation: Patient has autism and intermittent mood lability, becoming emotionally reactive and sometimes dangerous. It has not clear if he has things under control enough to handle Risperdal just as a p.r.n. or if he needs a scheduled; however at this time he is refusing it other than as needed. He said he knows he will not be depressed when he goes home because his mother is now able to help him; it has not clear if patient understands mother's medical illness and if she is able to attend to him as she has in the past. Will gather collateral. Of note, he has been with appropriate behavior and impulse control on the unit, polite and appropriate with peers and staff. Hospital course: 01/19 pt says mood is great and that he's sleeping well. Says no anger problems. Denies any SI or AVH. In group, staff reported he referenced masturbation and how he knows not to do in public. Denies cocaine use, though in UDS. Pt has been in good behavioral/impulse control even though not taking scheduled Risperdal -not sure about dispo and if he can return home; team working on gathering collateral. Plan: CV Q 15 minute checks Continue Prozac 20 mg daily Risperdal 1 mg b.i.d. p.r.n. for agitation; CHANGEd to prn; Patient refuses scheduled Risperdal but agreed it as p.r.n. Gather collateral Patient educated on: diagnosis and medication risk/benefits Informed Consent: understands Reason for continued inpatient stay Substantial Risk for: med/psych decompensation Time Spent With Patient Time: Total time managing care of this patient today ____ minutes.
--- NOTE | 2024-01-21 08:09 | HO.PSYCHPN ---
Subjective Subjective Date of Service: 01/21/24 Reason For Visit: Depression,SI,crack cocaine use,alcohol use Interim History: met with patient. Discussed with nursing. Overall continues to present well on the unit. Bright. Engaged. Reports he is doing very well with unusual prosody in voice, tone and inflection. Medication Compliance: Yes Side effects from medications: No Attending Groups: Intermittent Review of Systems Acute medical concerns: No Review of Systems Review of Systems Unremarkable Mental Status Exam Mental Status Exam Narrative: Pt is alert and oriented; behavior is cooperative, friendly and calm; patient is not in distress; dressed in casual attire with unkempt hair but adequate hygiene; mood is described as good and affect congruent; eye contact appropriate; Speech is loud, but normal rate; staccato; not pressured; no psychomotor agitation/retardation present; thought process is concrete but goal oriented and logical. Thought content pertinent to relevant topics and without any delusional content, paranoid ideations or grandiosity; denies any SI/HI. There is no evidence of perceptual disturbance. Patients insight and judgment impaired but possibly back to baseline. Diagnostics Vital Signs (24Hr): Vital Signs - 24 hr 01/20/24 20:00 Temperature 97.1 F Pulse Rate 69 Blood Pressure 110/60 Pulse Oximetry 98 Oxygen Delivery Method Room Air BMI result Body Mass Index 26.7 Labs 01/18/24 04:33 01/18/24 04:32 Labs: Laboratory Results - last 48 hr 01/19/24 07:58 Estimat Average Glucose 100 Hemoglobin A1c % 5.1 Magnesium 2.3 Triglycerides 133 Cholesterol 131 LDL Cholesterol, Calc 59 HDL Cholesterol 46 Vitamin B12 403 Folate 5.7 TSH 1.14 Free T4 0.84 Medications Medications Current Medications Acetaminophen (Acetaminophen 325 Mg Tablet) 650 mg PO Q6H PRN PRN Reason: Headache/Pain Mild Scale (1-3) Al Hydroxide/Mg Hydroxide (Magnesium Hydrox/Alum Hydrox 30 Ml Oral.Susp) 30 ml PO Q6H PRN PRN Reason: Heartburn/Nausea Fluoxetine HCl (Fluoxetine Hcl 20 Mg Capsule) 20 mg PO DAILY [facility] Last Admin: 01/20/24 08:32 Dose: 20 mg Hydroxyzine HCl (Hydroxyzine Hcl 25 Mg Tablet) 25 mg PO Q6H PRN PRN Reason: Anxiety Magnesium Hydroxide (Milk Of Magnesia 30 Ml Oral.Susp) 30 ml PO DAILY PRN PRN Reason: Constipation Multi-Ingred Cream/Lotion/Oil/Oint (Mineral Oil/Petrolatum,White 106 Gm Tube) 1 appl TOPICAL TID PRN; Protocol PRN Reason: dry skin Nicotine (Nicotine 21 Mg Patch.Td24) 21 mg TRANSDERMA DAILY PRN PRN Reason: nicotine cravings Nicotine Polacrilex (Nicotine Polacrilex 2 Mg Gum) 4 mg [place] Q2H PRN PRN Reason: Nicotine Cravings Risperidone (Risperidone 1 Mg Tablet) 1 mg PO TID PRN PRN Reason: anger/agitation Trazodone HCl (Trazodone Hcl 50 Mg Tablet) 50 mg PO BEDTIME MRX1 PRN PRN Reason: Insomnia Last Admin: 01/18/24 21:20 Dose: 50 mg Allergies Allergies Allergy/AdvReac Type Severity Reaction Status Date / Time No Known Allergies Allergy Verified 01/18/24 03:11 Assessment & Plan Assessment & Plan (1) Autism spectrum disorder: Status: Acute Code(s): F84.0 - Autistic disorder (2) MDD (major depressive disorder), recurrent severe, without psychosis: Status: Acute Code(s): F33.2 - Major depressive disorder, recurrent severe without psychotic features (3) Impulse control disorder, unspecified: Status: Acute Code(s): F63.9 - Impulse disorder, unspecified Plan Patient is a 18-year-old male with history of autism, depression, intermittent cocaine abuse who presents to the hospital for suicidal ideation in the face of his mother/primary engineering operations leader becoming sick. Patient is somewhat of a limited historian due to autism. He says that he was feeling very depressed at home 4 weeks, because his mother was sick. He said he became suicidal and had the thought to hang himself but he was too afraid to . Patient says that he no longer has any suicidal ideation and says I felt better when I got to the hospital. Patient reports that he takes Prozac and trazodone. He says he stopped Risperdal because it made him too tired. He does not want it anymore and does not think he needs it. Patient reports he took it to help him with his mood swings and it did help however feels that he is doing better now and does not need it. He does however agree to have it changed to a p.r.n. and available if he starts to get angry. -ED note reports his mother recently had a stroke; According to EMS, earlier today, mother reported that the patient made SI gestures by putting a clothes pipe changer around his neck as if he was going to hang himself. Clinical reasoning/formulation: Patient has autism and intermittent mood lability, becoming emotionally reactive and sometimes dangerous. It has not clear if he has things under control enough to handle Risperdal just as a p.r.n. or if he needs a scheduled; however at this time he is refusing it other than as needed. He said he knows he will not be depressed when he goes home because his mother is now able to help him; it has not clear if patient understands mother's medical illness and if she is able to attend to him as she has in the past. Will gather collateral. Of note, he has been with appropriate behavior and impulse control on the unit, polite and appropriate with peers and staff. Plan: CV Q 15 minute checks Continue Prozac 20 mg daily Risperdal 1 mg b.i.d. p.r.n. for agitation; Patient refuses scheduled Risperdal however agrees to have it changed to p.r.n. Gather collateral 01/21/2024: No changes Reason for continued inpatient stay Substantial Risk for: rapid decompensation Time Spent With Patient Time: Total time managing care of this patient today ____ minutes.
[2024-01-21 08:16] VITALS: BP 122/60; PULSE 63; RESP 16; TEMP 36.2; O2SAT 99
[2024-01-21] MEDS: FLUoxetine HCl 20 MG CAPSULE PO (08:46)
[2024-01-21] MEDS: Mineral Oil/Petrolatum,White 106 GM Tube 1 APPL TOPICAL (09:46)
[2024-01-21 20:00] VITALS: BP 149/68; PULSE 88; RESP 18; TEMP 36.2; O2SAT 98
[2024-01-21] MEDS: traZODone HCL 50 MG TABLET PO (21:32)
[2024-01-22 08:19] VITALS: BP 111/67; PULSE 79; RESP 16; TEMP 36.6; O2SAT 96
--- NOTE | 2024-01-22 10:56 | P.PNPSI_ITS ---
Subjective Subjective Date of Service: 01/22/24 Reason For Visit: Depression,SI,crack cocaine use,alcohol use Interim History: met with patient. Discussed with nursing. Was noted to be more hypersexual yesterday around comments towards others and during group. Was able to be redirected. Reports today feeling more tired as yesterday the unit was in his words chaotic (which is accurate) is therefore feeling more tired as he was very overstimulated and anxious yesterday in the context of same. Bright. Engaged. Medication Compliance: Yes Side effects from medications: No Attending Groups: Intermittent Review of Systems Acute medical concerns: No Review of Systems Review of Systems Unremarkable Mental Status Exam Mental Status Exam Narrative: Pt is alert and oriented; behavior is cooperative, friendly and calm; patient is not in distress; dressed in casual attire with unkempt hair but adequate hygiene; mood is described as good and affect congruent; eye contact appropriate; Speech is loud, but normal rate; staccato; not pressured; no psychomotor agitation/retardation present; thought process is concrete but goal oriented and logical. Thought content pertinent to relevant topics and without any delusional content, paranoid ideations or grandiosity; denies any SI/HI. There is no evidence of perceptual disturbance. Patients insight and judgment impaired but possibly back to baseline. Diagnostics Vital Signs (24Hr): Vital Signs - 24 hr 01/21/24 20:00 Temperature 97.2 F Pulse Rate 88 Respiratory Rate 18 Blood Pressure 149/68 H Pulse Oximetry 98 Oxygen Delivery Method Room Air BMI result Body Mass Index 26.7 Labs 01/18/24 04:33 01/18/24 04:32 Medications Medications Current Medications Acetaminophen (Acetaminophen 325 Mg Tablet) 650 mg PO Q6H PRN PRN Reason: Headache/Pain Mild Scale (1-3) Al Hydroxide/Mg Hydroxide (Magnesium Hydrox/Alum Hydrox 30 Ml Oral.Susp) 30 ml PO Q6H PRN PRN Reason: Heartburn/Nausea Fluoxetine HCl (Fluoxetine Hcl 20 Mg Capsule) 20 mg PO DAILY OSCAR Last Admin: 01/21/24 08:46 Dose: 20 mg Hydroxyzine HCl (Hydroxyzine Hcl 25 Mg Tablet) 25 mg PO Q6H PRN PRN Reason: Anxiety Magnesium Hydroxide (Milk Of Magnesia 30 Ml Oral.Susp) 30 ml PO DAILY PRN PRN Reason: Constipation Multi-Ingred Cream/Lotion/Oil/Oint (Mineral Oil/Petrolatum,White 106 Gm Tube) 1 appl TOPICAL TID PRN; Protocol PRN Reason: dry skin Last Admin: 01/21/24 09:46 Dose: 1 appl Nicotine (Nicotine 21 Mg Patch.Td24) 21 mg TRANSDERMA DAILY PRN PRN Reason: nicotine cravings Nicotine Polacrilex (Nicotine Polacrilex 2 Mg Gum) 4 mg BUCCAL Q2H PRN PRN Reason: Nicotine Cravings Risperidone (Risperidone 1 Mg Tablet) 1 mg PO TID PRN PRN Reason: anger/agitation Trazodone HCl (Trazodone Hcl 50 Mg Tablet) 50 mg PO BEDTIME MRX1 PRN PRN Reason: Insomnia Last Admin: 01/21/24 21:32 Dose: 50 mg Allergies Allergies Allergy/AdvReac Type Severity Reaction Status Date / Time No Known Allergies Allergy Verified 01/18/24 03:11 Assessment & Plan Assessment & Plan (1) Autism spectrum disorder: Status: Acute Code(s): F84.0 - Autistic disorder (2) MDD (major depressive disorder), recurrent severe, without psychosis: Status: Acute Code(s): F33.2 - Major depressive disorder, recurrent severe without psychotic features (3) Impulse control disorder, unspecified: Status: Acute Code(s): F63.9 - Impulse disorder, unspecified Plan Patient is a 18-year-old male with history of autism, depression, intermittent cocaine abuse who presents to the hospital for suicidal ideation in the face of his mother/primary supervisor assembly becoming sick. Patient is somewhat of a limited historian due to autism. He says that he was feeling very depressed at home 4 weeks, because his mother was sick. He said he became suicidal and had the thought to hang himself but he was too afraid to . Patient says that he no longer has any suicidal ideation and says I felt better when I got to the hospital. Patient reports that he takes Prozac and trazodone. He says he stopped Risperdal because it made him too tired. He does not want it anymore and does not think he needs it. Patient reports he took it to help him with his mood swings and it did help however feels that he is doing better now and does not need it. He does however agree to have it changed to a p.r.n. and available if he starts to get angry. -ED note reports his mother recently had a stroke; According to EMS, earlier today, mother reported that the patient made SI gestures by putting a clothes record changer assembler around his neck as if he was going to hang himself. Clinical reasoning/formulation: Patient has autism and intermittent mood lability, becoming emotionally reactive and sometimes dangerous. It has not clear if he has things under control enough to handle Risperdal just as a p.r.n. or if he needs a scheduled; however at this time he is refusing it other than as needed. He said he knows he will not be depressed when he goes home because his mother is now able to help him; it has not clear if patient understands mother's medical illness and if she is able to attend to him as she has in the past. Will gather collateral. Of note, he has been with appropriate behavior and impulse control on the unit, polite and appropriate with peers and staff. Plan: CV Q 15 minute checks Continue Prozac 20 mg daily Risperdal 1 mg b.i.d. p.r.n. for agitation; Patient refuses scheduled Risperdal however agrees to have it changed to p.r.n. Gather collateral 01/22/2024: No changes Reason for continued inpatient stay Substantial Risk for: rapid decompensation Time Spent With Patient Time: Total time managing care of this patient today ____ minutes.
[2024-01-22] MEDS: FLUoxetine HCl 20 MG CAPSULE PO (11:59)
[2024-01-22 20:00] VITALS: BP 142/76; PULSE 87; RESP 18; TEMP 36.4; O2SAT 98
[2024-01-22] MEDS: traZODone HCL 50 MG TABLET PO (23:24)
[2024-01-23 08:00] VITALS: BP 98/50; PULSE 69; RESP 18; TEMP 36.2; O2SAT 99
[2024-01-23] MEDS: FLUoxetine HCl 20 MG CAPSULE PO (08:46)
[2024-01-23 20:00] VITALS: BP 129/74; PULSE 88; RESP 20; TEMP 36.9; O2SAT 98
--- NOTE | 2024-01-23 23:16 | HO.PSYCHPN ---
Subjective Subjective Date of Service: 01/23/24 Reason For Visit: Depression,SI,crack cocaine use,alcohol use Interim History: met with pt; discussed with team pt says he is great and denies any complaints, psychiatric symptoms. Says sleeping and eating well -made some sexual comments in group but did not appear to intentionally provoke and was redirectable Mental Status Exam Mental Status Exam Narrative: Pt is alert and oriented; behavior is cooperative, friendly and calm; patient is not in distress; dressed in casual attire with unkempt hair but adequate hygiene; mood is described as great and affect congruent; eye contact appropriate; Speech is loud, but normal rate; staccato; not pressured; no psychomotor agitation/retardation present; thought process is concrete but goal oriented and logical. Thought content pertinent to relevant topics and without any delusional content, paranoid ideations or grandiosity; denies any SI/HI. There is no evidence of perceptual disturbance. Patients insight and judgment impaired but likely at baseline. Diagnostics Vital Signs (24Hr): Vital Signs - 24 hr 01/23/24 08:00 01/23/24 20:00 Temperature 97.1 F 98.5 F Pulse Rate 69 88 Respiratory Rate 18 20 Blood Pressure 98/50 L 129/74 Pulse Oximetry 99 98 Oxygen Delivery Method Room Air Room Air BMI result Body Mass Index 26.7 Labs 01/18/24 04:33 01/18/24 04:32 Medications Medications Current Medications Acetaminophen (Acetaminophen 325 Mg Tablet) 650 mg PO Q6H PRN PRN Reason: Headache/Pain Mild Scale (1-3) Al Hydroxide/Mg Hydroxide (Magnesium Hydrox/Alum Hydrox 30 Ml Oral.Susp) 30 ml PO Q6H PRN PRN Reason: Heartburn/Nausea Fluoxetine HCl (Fluoxetine Hcl 20 Mg Capsule) 20 mg PO DAILY OSCAR Last Admin: 01/23/24 08:46 Dose: 20 mg Hydroxyzine HCl (Hydroxyzine Hcl 25 Mg Tablet) 25 mg PO Q6H PRN PRN Reason: Anxiety Magnesium Hydroxide (Milk Of Magnesia 30 Ml Oral.Susp) 30 ml PO DAILY PRN PRN Reason: Constipation Multi-Ingred Cream/Lotion/Oil/Oint (Mineral Oil/Petrolatum,White 106 Gm Tube) 1 appl TOPICAL TID PRN; Protocol PRN Reason: dry skin Last Admin: 01/21/24 09:46 Dose: 1 appl Nicotine (Nicotine 21 Mg Patch.Td24) 21 mg TRANSDERMA DAILY PRN PRN Reason: nicotine cravings Nicotine Polacrilex (Nicotine Polacrilex 2 Mg Gum) 4 mg BUCCAL Q2H PRN PRN Reason: Nicotine Cravings Risperidone (Risperidone 1 Mg Tablet) 1 mg PO TID PRN PRN Reason: anger/agitation Trazodone HCl (Trazodone Hcl 50 Mg Tablet) 50 mg PO BEDTIME MRX1 PRN PRN Reason: Insomnia Last Admin: 01/22/24 23:24 Dose: 50 mg Allergies Allergies Allergy/AdvReac Type Severity Reaction Status Date / Time No Known Allergies Allergy Verified 01/18/24 03:11 Assessment & Plan Assessment & Plan (1) Autism spectrum disorder: Status: Acute Code(s): F84.0 - Autistic disorder (2) MDD (major depressive disorder), recurrent severe, without psychosis: Status: Acute Code(s): F33.2 - Major depressive disorder, recurrent severe without psychotic features (3) Impulse control disorder, unspecified: Status: Acute Code(s): F63.9 - Impulse disorder, unspecified Plan Patient is a 18-year-old male with history of autism, depression, intermittent cocaine abuse who presents to the hospital for suicidal ideation in the face of his mother/primary manager agency becoming sick. Patient is somewhat of a limited historian due to autism. He says that he was feeling very depressed at home 4 weeks, because his mother was sick. He said he became suicidal and had the thought to hang himself but he was too afraid to . Patient says that he no longer has any suicidal ideation and says I felt better when I got to the hospital. Patient reports that he takes Prozac and trazodone. He says he stopped Risperdal because it made him too tired. He does not want it anymore and does not think he needs it. Patient reports he took it to help him with his mood swings and it did help however feels that he is doing better now and does not need it. He does however agree to have it changed to a p.r.n. and available if he starts to get angry. -ED note reports his mother recently had a stroke; According to EMS, earlier today, mother reported that the patient made SI gestures by putting a clothes pattern changer and repairer around his neck as if he was going to hang himself. Clinical reasoning/formulation: Patient has autism and intermittent mood lability, becoming emotionally reactive and sometimes dangerous. It has not clear if he has things under control enough to handle Risperdal just as a p.r.n. or if he needs a scheduled; however at this time he is refusing it other than as needed. He said he knows he will not be depressed when he goes home because his mother is now able to help him; it has not clear if patient understands mother's medical illness and if she is able to attend to him as she has in the past. Will gather collateral. Of note, he has been with appropriate behavior and impulse control on the unit, polite and appropriate with peers and staff. Hospital course: 01/22 remains stable, no aggression/anger; navigating milue and making some friendships. pt says he is great and denies any complaints, psychiatric symptoms. Says sleeping and eating well; overall approp w/ peers/staff. -made some sexual comments in group but did not appear to intentionally provoke and was redirectable Pt has no outpt services set up; given his Autism and mom's stroke, will need addtional support; SW discussing [facility] víctor Plan: CV Q 15 minute checks Continue Prozac 20 mg daily Risperdal 1 mg b.i.d. p.r.n. for agitation; Patient refuses scheduled Risperdal however agrees to have it changed to p.r.n. Gather collateral Patient educated on: diagnosis Informed Consent: understands Reason for continued inpatient stay Substantial Risk for: stable for discharge, rapid decompensation and med/psych decompensation Time Spent With Patient Time: Total time managing care of this patient today ____ minutes.
[2024-01-24 08:00] VITALS: BP 121/61; PULSE 68; RESP 20; TEMP 36.5; O2SAT 95
[2024-01-24] MEDS: FLUoxetine HCl 20 MG CAPSULE PO (09:12)
[2024-01-24] MEDS: Nicotine Polacrilex 2 MG GUM 4 MG BUCCAL (09:39)
[2024-01-24] MEDS: risperiDONE 1 MG TABLET PO (11:02)
--- NOTE | 2024-01-24 18:53 | HO.PSYCHPN ---
Subjective Subjective Date of Service: 01/24/24 Reason For Visit: Depression,SI,crack cocaine use,alcohol use Interim History: Met with pt; discussed with team pt in good behavioral/impulse control until suddenly, after got off phone w/ mother, demanded to discharge and banged on door; he was never aggressive and and said hospital has no right to keep him here. He was redirectable. Staff then talked with patients mother who demanded that her son be discharged and acknowledged that she told her son to demand to leave the hospital. Mother calmed down and agreed son needed to stay to work out safe dispo. Mental Status Exam Mental Status Exam Narrative: Pt is alert and oriented; behavior is cooperative, friendly and calm; patient is not in distress; dressed in casual attire with unkempt hair but adequate hygiene; mood is described as good and affect congruent; eye contact appropriate; Speech is loud, but normal rate; staccato; not pressured; no psychomotor agitation/retardation present; thought process is concrete but goal oriented and logical. Thought content pertinent to relevant topics and without any delusional content, paranoid ideations or grandiosity; denies any SI/HI. There is no evidence of perceptual disturbance. Patients insight and judgment impaired but likely at baseline. Diagnostics Vital Signs (24Hr): Vital Signs - 24 hr 01/23/24 20:00 01/24/24 08:00 Temperature 98.5 F 97.7 F Pulse Rate 88 68 Respiratory Rate 20 20 Blood Pressure 129/74 121/61 Pulse Oximetry 98 95 Oxygen Delivery Method Room Air Room Air BMI result Body Mass Index 26.7 Labs 01/18/24 04:33 01/18/24 04:32 Medications Medications Current Medications Acetaminophen (Acetaminophen 325 Mg Tablet) 650 mg PO Q6H PRN PRN Reason: Headache/Pain Mild Scale (1-3) Al Hydroxide/Mg Hydroxide (Magnesium Hydrox/Alum Hydrox 30 Ml Oral.Susp) 30 ml PO Q6H PRN PRN Reason: Heartburn/Nausea Fluoxetine HCl (Fluoxetine Hcl 20 Mg Capsule) 20 mg PO DAILY OSCAR Last Admin: 01/24/24 09:12 Dose: 20 mg Hydroxyzine HCl (Hydroxyzine Hcl 25 Mg Tablet) 25 mg PO Q6H PRN PRN Reason: Anxiety Magnesium Hydroxide (Milk Of Magnesia 30 Ml Oral.Susp) 30 ml PO DAILY PRN PRN Reason: Constipation Multi-Ingred Cream/Lotion/Oil/Oint (Mineral Oil/Petrolatum,White 106 Gm Tube) 1 appl TOPICAL TID PRN; Protocol PRN Reason: dry skin Last Admin: 01/21/24 09:46 Dose: 1 appl Nicotine (Nicotine 21 Mg Patch.Td24) 21 mg TRANSDERMA DAILY PRN PRN Reason: nicotine cravings Nicotine Polacrilex (Nicotine Polacrilex 2 Mg Gum) 4 mg BUCCAL Q2H PRN PRN Reason: Nicotine Cravings Last Admin: 01/24/24 09:39 Dose: 4 mg Risperidone (Risperidone 1 Mg Tablet) 1 mg PO TID PRN PRN Reason: anger/agitation Last Admin: 01/24/24 11:02 Dose: 1 mg Trazodone HCl (Trazodone Hcl 50 Mg Tablet) 50 mg PO BEDTIME MRX1 PRN PRN Reason: Insomnia Last Admin: 01/22/24 23:24 Dose: 50 mg Allergies Allergies Allergy/AdvReac Type Severity Reaction Status Date / Time No Known Allergies Allergy Verified 01/18/24 03:11 Assessment & Plan Assessment & Plan (1) Autism spectrum disorder: Status: Acute Code(s): F84.0 - Autistic disorder (2) MDD (major depressive disorder), recurrent severe, without psychosis: Status: Acute Code(s): F33.2 - Major depressive disorder, recurrent severe without psychotic features (3) Impulse control disorder, unspecified: Status: Acute Code(s): F63.9 - Impulse disorder, unspecified Plan Patient is a 18-year-old male with history of autism, depression, intermittent cocaine abuse who presents to the hospital for suicidal ideation in the face of 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 Patient is somewhat of a limited historian due to autism. He says that he was feeling very depressed at home 4 weeks, because his mother was sick. He said he became suicidal and had the thought to hang himself but he was too afraid to . Patient says that he no longer has any suicidal ideation and says I felt better when I got to the hospital. Patient reports that he takes Prozac and trazodone. He says he stopped Risperdal because it made him too tired. He does not want it anymore and does not think he needs it. Patient reports he took it to help him with his mood swings and it did help however feels that he is doing better now and does not need it. He does however agree to have it changed to a p.r.n. and available if he starts to get angry. -ED note reports his mother recently had a stroke; According to EMS, earlier today, mother reported that the patient made SI gestures by putting a clothes ticket dispenser changer around his neck as if he was going to hang himself. Clinical reasoning/formulation: Patient has autism and intermittent mood lability, becoming emotionally reactive and sometimes dangerous. It has not clear if he has things under control enough to handle Risperdal just as a p.r.n. or if he needs a scheduled; however at this time he is refusing it other than as needed. He said he knows he will not be depressed when he goes home because his mother is now able to help him; it has not clear if patient understands mother's medical illness and if she is able to attend to him as she has in the past. Will gather collateral. Of note, he has been with appropriate behavior and impulse control on the unit, polite and appropriate with peers and staff. Hospital course: 01/22 remains stable, no aggression/anger; navigating milue and making some friendships. pt says he is great and denies any complaints, psychiatric symptoms. Says sleeping and eating well; overall approp w/ peers/staff. -made some sexual comments in group but did not appear to intentionally provoke and was redirectable Pt has no outpt services set up; given his Autism and mom's stroke, will need addtional support; SW discussing [facility] víctor 01/23 pt in good behavioral/impulse control until suddenly, after got off phone w/ mother, demanded to discharge and banged on door; he was never aggressive and and said hospital has no right to keep him here. He was redirectable. Staff then talked with patients mother who demanded that her son be discharged and acknowledged that she told her son to demand to leave the hospital. Mother calmed down and agreed son needed to stay to work out safe dispo. -news writer later talked with pt who said he got angry because he wanted to go home but now accepts he'll stay the rest of the week. Pt shirtless and in bed and news writer noticed gynecomastica. [employer] asked about hx of cocaine abuse and pt (for first time) acknowledged he has used it and that people in the neighborhood give it to him; he denies paying for it. -news writer asked about getting back on risperdal or something else to help with anger (given outburst) but patient declined. [employer] agrees that this angry outburst was provoked and situational and given side-effects, pt may very well only need risperdal as a prn Plan: CV Q 15 minute checks Continue Prozac 20 mg daily Risperdal 1 mg b.i.d. p.r.n. for agitation; Patient refuses scheduled Risperdal however agrees to have it changed to p.r.n. Gather collateral Patient educated on: diagnosis, medication risk/benefits and substance abuse Informed Consent: understands, does not understand and further education needed Reason for continued inpatient stay Substantial Risk for: med/psych decompensation Time Spent With Patient Time: Total time managing care of this patient today ____ minutes.
[2024-01-24 20:00] VITALS: BP 120/76; PULSE 94; RESP 18; TEMP 36.9; O2SAT 98
[2024-01-24] MEDS: traZODone HCL 50 MG TABLET PO (20:00)
[2024-01-25 08:00] VITALS: BP 122/61; PULSE 76; RESP 18; TEMP 36.4; O2SAT 76
[2024-01-25] MEDS: FLUoxetine HCl 20 MG CAPSULE PO (08:36)
[2024-01-25 20:00] VITALS: BP 126/67; PULSE 93; RESP 16; TEMP 36.1; O2SAT 97
[2024-01-25] MEDS: risperiDONE 1 MG TABLET PO (20:40)
[2024-01-25] MEDS: traZODone HCL 50 MG TABLET PO (20:40)
[2024-01-25] MEDS: Acetaminophen 325 MG TABLET 650 MG PO (20:45)
--- NOTE | 2024-01-25 23:51 | P.PNPSI_ITS ---
Subjective Subjective Date of Service: 01/25/24 Reason For Visit: Depression,SI,crack cocaine use,alcohol use Interim History: met with pt; discussed with team pt says he's great and that he's looking forward to going home Tuesday and seeing his mom; he says when he gets home he's going to play video games. Otherwise denies psych symptoms; no complaints. Remains in good behavioral impulse control, overall appropriate with peers and staff. Mental Status Exam Mental Status Exam Narrative: Pt is alert and oriented; behavior is cooperative, friendly and calm; patient is not in distress; dressed in casual attire with unkempt hair but adequate hygiene; mood is described as great and affect congruent; eye contact appropriate; Speech is loud, but normal rate; staccato; not pressured; no psychomotor agitation/retardation present; thought process is concrete but goal oriented and logical. Thought content pertinent to relevant topics and without any delusional content, paranoid ideations or grandiosity; denies any SI/HI. There is no evidence of perceptual disturbance. Patients insight and judgment impaired adequate and at baseline. Diagnostics Vital Signs (24Hr): Vital Signs - 24 hr 01/25/24 08:00 Temperature 97.5 F Pulse Rate 76 Respiratory Rate 18 Blood Pressure 122/61 Pulse Oximetry 76 L Oxygen Delivery Method Room Air BMI result Body Mass Index 26.7 Labs 01/18/24 04:33 01/18/24 04:32 Medications Medications Current Medications Acetaminophen (Acetaminophen 325 Mg Tablet) 650 mg PO Q6H PRN PRN Reason: Headache/Pain Mild Scale (1-3) Last Admin: 01/25/24 20:45 Dose: 650 mg Al Hydroxide/Mg Hydroxide (Magnesium Hydrox/Alum Hydrox 30 Ml Oral.Susp) 30 ml PO Q6H PRN PRN Reason: Heartburn/Nausea Fluoxetine HCl (Fluoxetine Hcl 20 Mg Capsule) 20 mg PO DAILY OSCAR Last Admin: 01/25/24 08:36 Dose: 20 mg Hydroxyzine HCl (Hydroxyzine Hcl 25 Mg Tablet) 25 mg PO Q6H PRN PRN Reason: Anxiety Magnesium Hydroxide (Milk Of Magnesia 30 Ml Oral.Susp) 30 ml PO DAILY PRN PRN Reason: Constipation Multi-Ingred Cream/Lotion/Oil/Oint (Mineral Oil/Petrolatum,White 106 Gm Tube) 1 appl TOPICAL TID PRN; Protocol PRN Reason: dry skin Last Admin: 01/21/24 09:46 Dose: 1 appl Nicotine (Nicotine 21 Mg Patch.Td24) 21 mg TRANSDERMA DAILY PRN PRN Reason: nicotine cravings Nicotine Polacrilex (Nicotine Polacrilex 2 Mg Gum) 4 mg BUCCAL Q2H PRN PRN Reason: Nicotine Cravings Last Admin: 01/24/24 09:39 Dose: 4 mg Risperidone (Risperidone 1 Mg Tablet) 1 mg PO TID PRN PRN Reason: anger/agitation Last Admin: 01/25/24 20:40 Dose: 1 mg Trazodone HCl (Trazodone Hcl 50 Mg Tablet) 50 mg PO BEDTIME MRX1 PRN PRN Reason: Insomnia Last Admin: 01/25/24 20:40 Dose: 50 mg Allergies Allergies Allergy/AdvReac Type Severity Reaction Status Date / Time No Known Allergies Allergy Verified 01/18/24 03:11 Assessment & Plan Assessment & Plan (1) Autism spectrum disorder: Status: Acute Code(s): F84.0 - Autistic disorder (2) MDD (major depressive disorder), recurrent severe, without psychosis: Status: Acute Code(s): F33.2 - Major depressive disorder, recurrent severe without psychotic features (3) Impulse control disorder, unspecified: Status: Acute Code(s): F63.9 - Impulse disorder, unspecified Plan Patient is a 18-year-old male with history of autism, depression, intermittent cocaine abuse who presents to the hospital for suicidal ideation in the face of his mother/primary financial reporting specialist becoming sick. Patient is somewhat of a limited historian due to autism. He says that he was feeling very depressed at home 4 weeks, because his mother was sick. He said he became suicidal and had the thought to hang himself but he was too afraid to . Patient says that he no longer has any suicidal ideation and says I felt better when I got to the hospital. Patient reports that he takes Prozac and trazodone. He says he stopped Risperdal because it made him too tired. He does not want it anymore and does not think he needs it. Patient reports he took it to help him with his mood swings and it did help however feels that he is doing better now and does not need it. He does however agree to have it changed to a p.r.n. and available if he starts to get angry. -ED note reports his mother recently had a stroke; According to EMS, earlier today, mother reported that the patient made SI gestures by putting a clothes record changer around his neck as if he was going to hang himself. Clinical reasoning/formulation: Patient has autism and intermittent mood lability, becoming emotionally reactive and sometimes dangerous. It has not clear if he has things under control enough to handle Risperdal just as a p.r.n. or if he needs a scheduled; however at this time he is refusing it other than as needed. He said he knows he will not be depressed when he goes home because his mother is now able to help him; it has not clear if patient understands mother's medical illness and if she is able to attend to him as she has in the past. Will gather collateral. Of note, he has been with appropriate behavior and impulse control on the unit, polite and appropriate with peers and staff. Hospital course: 01/22 remains stable, no aggression/anger; navigating milue and making some friendships. pt says he is great and denies any complaints, psychiatric symptoms. Says sleeping and eating well; overall approp w/ peers/staff. -made some sexual comments in group but did not appear to intentionally provoke and was redirectable Pt has no outpt services set up; given his Autism and mom's stroke, will need addtional support; SW discussing [facility] víctor 01/23 pt in good behavioral/impulse control until suddenly, after got off phone w/ mother, demanded to discharge and banged on door; he was never aggressive and and said hospital has no right to keep him here. He was redirectable. Staff then talked with patients mother who demanded that her son be discharged and acknowledged that she told her son to demand to leave the hospital. Mother calmed down and agreed son needed to stay to work out safe dispo. -handbook writer later talked with pt who said he got angry because he wanted to go home but now accepts he'll stay the rest of the week. Pt shirtless and in bed and handbook writer noticed gynecomastica. Vocational Training Instructor asked about hx of cocaine abuse and pt (for first time) acknowledged he has used it and that people in the neighborhood give it to him; he denies paying for it. -handbook writer asked about getting back on risperdal or something else to help with anger (given outburst) but patient declined. Vocational Training Instructor agrees that this angry outburst was provoked and situational and given side-effects, pt may very well only need risperdal as a prn 01/24 denies psych symptoms; no complaints. Remains in good behavioral impulse control, overall appropriate with peers and staff -continue with dispo planning, [facility] víctor and setting up after care. Mom agrees with plan Plan: CV Q 15 minute checks Continue Prozac 20 mg daily Risperdal 1 mg b.i.d. p.r.n. for agitation; Patient refuses scheduled Risperdal however agrees to have it changed to p.r.n. Gather collateral 01/22/2024: No changes Patient educated on: diagnosis Informed Consent: understands Reason for continued inpatient stay Substantial Risk for: med/psych decompensation Time Spent With Patient Time: Total time managing care of this patient today ____ minutes.
[2024-01-26 07:00] VITALS: BMI 29.9
[2024-01-26 08:32] VITALS: BP 118/59; PULSE 95; RESP 16; TEMP 37.2; O2SAT 98
[2024-01-26] MEDS: FLUoxetine HCl 20 MG CAPSULE PO (08:44)
[2024-01-26 20:00] VITALS: BP 136/76; PULSE 103; RESP 18; TEMP 36.9; O2SAT 97
[2024-01-26] MEDS: risperiDONE 1 MG TABLET PO (20:11)
[2024-01-26] MEDS: traZODone HCL 50 MG TABLET PO (20:11)
--- NOTE | 2024-01-27 00:03 | P.PNPSI_ITS ---
Subjective Subjective Date of Service: 01/26/24 Reason For Visit: Depression,SI,crack cocaine use,alcohol use Interim History: note for pt seen on 01/25; discussed with team pt remains at baseline; says he's great because he's going home tomorrow. Mental Status Exam Mental Status Exam Narrative: Pt is alert and oriented; behavior is cooperative, friendly and calm; patient is not in distress; dressed in casual attire with unkempt hair but adequate hygiene; mood is described as great and affect congruent; eye contact appropriate; Speech is loud, but normal rate; staccato; not pressured; no psychomotor agitation/retardation present; thought process is concrete but goal oriented and logical. Thought content pertinent to relevant topics and without any delusional content, paranoid ideations or grandiosity; denies any SI/HI. There is no evidence of perceptual disturbance. Patients insight and judgment impaired adequate and at baseline. Diagnostics Vital Signs (24Hr): Vital Signs - 24 hr 01/26/24 08:32 01/26/24 20:00 Temperature 98.9 F 98.5 F Pulse Rate 95 103 H Respiratory Rate 16 18 Blood Pressure 118/59 L 136/76 Pulse Oximetry 98 97 Oxygen Delivery Method Room Air Room Air BMI result Body Mass Index 29.9 Labs 01/18/24 04:33 01/18/24 04:32 Medications Medications Current Medications Acetaminophen (Acetaminophen 325 Mg Tablet) 650 mg PO Q6H PRN PRN Reason: Headache/Pain Mild Scale (1-3) Last Admin: 01/25/24 20:45 Dose: 650 mg Al Hydroxide/Mg Hydroxide (Magnesium Hydrox/Alum Hydrox 30 Ml Oral.Susp) 30 ml PO Q6H PRN PRN Reason: Heartburn/Nausea Fluoxetine HCl (Fluoxetine Hcl 20 Mg Capsule) 20 mg PO DAILY OSCAR Last Admin: 01/26/24 08:44 Dose: 20 mg Hydroxyzine HCl (Hydroxyzine Hcl 25 Mg Tablet) 25 mg PO Q6H PRN PRN Reason: Anxiety Magnesium Hydroxide (Milk Of Magnesia 30 Ml Oral.Susp) 30 ml PO DAILY PRN PRN Reason: Constipation Multi-Ingred Cream/Lotion/Oil/Oint (Mineral Oil/Petrolatum,White 106 Gm Tube) 1 appl TOPICAL TID PRN; Protocol PRN Reason: dry skin Last Admin: 01/21/24 09:46 Dose: 1 appl Nicotine (Nicotine 21 Mg Patch.Td24) 21 mg TRANSDERMA DAILY PRN PRN Reason: nicotine cravings Nicotine Polacrilex (Nicotine Polacrilex 2 Mg Gum) 4 mg BUCCAL Q2H PRN PRN Reason: Nicotine Cravings Last Admin: 01/24/24 09:39 Dose: 4 mg Risperidone (Risperidone 1 Mg Tablet) 1 mg PO TID PRN PRN Reason: anger/agitation Last Admin: 01/26/24 20:11 Dose: 1 mg Trazodone HCl (Trazodone Hcl 50 Mg Tablet) 50 mg PO BEDTIME MRX1 PRN PRN Reason: Insomnia Last Admin: 01/26/24 20:11 Dose: 50 mg Allergies Allergies Allergy/AdvReac Type Severity Reaction Status Date / Time No Known Allergies Allergy Verified 01/18/24 03:11 Assessment & Plan Assessment & Plan (1) Autism spectrum disorder: Status: Acute Code(s): F84.0 - Autistic disorder (2) MDD (major depressive disorder), recurrent severe, without psychosis: Status: Acute Code(s): F33.2 - Major depressive disorder, recurrent severe without psychotic features (3) Impulse control disorder, unspecified: Status: Acute Code(s): F63.9 - Impulse disorder, unspecified Plan Patient is a 18-year-old male with history of autism, depression, intermittent cocaine abuse who presents to the hospital for suicidal ideation in the face of his mother/primary distribution collection operator becoming sick. Patient is somewhat of a limited historian due to autism. He says that he was feeling very depressed at home 4 weeks, because his mother was sick. He said he became suicidal and had the thought to hang himself but he was too afraid to . Patient says that he no longer has any suicidal ideation and says I felt better when I got to the hospital. Patient reports that he takes Prozac and trazodone. He says he stopped Risperdal because it made him too tired. He does not want it anymore and does not think he needs it. Patient reports he took it to help him with his mood swings and it did help however feels that he is doing better now and does not need it. He does however agree to have it changed to a p.r.n. and available if he starts to get angry. -ED note reports his mother recently had a stroke; According to EMS, earlier today, mother reported that the patient made SI gestures by putting a clothes drop wire hanger around his neck as if he was going to hang himself. Clinical reasoning/formulation: Patient has autism and intermittent mood lability, becoming emotionally reactive and sometimes dangerous. It has not clear if he has things under control enough to handle Risperdal just as a p.r.n. or if he needs a scheduled; however at this time he is refusing it other than as needed. He said he knows he will not be depressed when he goes home because his mother is now able to help him; it has not clear if patient understands mother's medical illness and if she is able to attend to him as she has in the past. Will gather collateral. Of note, he has been with appropriate behavior and impulse control on the unit, polite and appropriate with peers and staff. Hospital course: 01/22 remains stable, no aggression/anger; navigating milue and making some friendships. pt says he is great and denies any complaints, psychiatric symptoms. Says sleeping and eating well; overall approp w/ peers/staff. -made some sexual comments in group but did not appear to intentionally provoke and was redirectable Pt has no outpt services set up; given his Autism and mom's stroke, will need addtional support; SW discussing [facility] víctor 01/23 pt in good behavioral/impulse control until suddenly, after got off phone w/ mother, demanded to discharge and banged on door; he was never aggressive and and said hospital has no right to keep him here. He was redirectable. Staff then talked with patients mother who demanded that her son be discharged and acknowledged that she told her son to demand to leave the hospital. Mother calmed down and agreed son needed to stay to work out safe dispo. -director underwriter sales later talked with pt who said he got angry because he wanted to go home but now accepts he'll stay the rest of the week. Pt shirtless and in bed and director underwriter sales noticed gynecomastica. Aboriginal Community Council Member asked about hx of cocaine abuse and pt (for first time) acknowledged he has used it and that people in the neighborhood give it to him; he denies paying for it. -director underwriter sales asked about getting back on risperdal or something else to help with anger (given outburst) but patient declined. Aboriginal Community Council Member agrees that this angry outburst was provoked and situational and given side-effects, pt may very well only need risperdal as a prn 01/24 denies psych symptoms; no complaints. Remains in good behavioral impulse control, overall appropriate with peers and staff -continue with dispo planning, [facility] víctor and setting up after care. Mom agrees with plan 01/25 stable; pt signed [facility]mh víctor; continue current tx; proceed with dispo plan. Plan: CV Q 15 minute checks Continue Prozac 20 mg daily Risperdal 1 mg b.i.d. p.r.n. for agitation; Patient refuses scheduled Risperdal however agrees to have it changed to p.r.n. Patient educated on: diagnosis Informed Consent: understands Reason for continued inpatient stay Substantial Risk for: stable for discharge Time Spent With Patient Time: Total time managing care of this patient today ____ minutes.
[2024-01-27 08:00] VITALS: BP 128/74; PULSE 95; RESP 16; TEMP 36.6; O2SAT 98
[2024-01-27] MEDS: FLUoxetine HCl 20 MG CAPSULE PO (08:17)
--- NOTE | 2024-01-27 08:17 | PM.PSYDC ---
DS: Providers Provider Date of Service: 01/27/24 Date of admission: 01/18/24 16:35 Date of discharge: 01/27/24 Primary care physician: Unknown Physician Attending physician on admission: Edvin Otero Attending physician on discharge: Edvin Otero DS: Diagnosis Discharge Diagnosis (1) Autism spectrum disorder: Status: Acute (2) MDD (major depressive disorder), recurrent severe, without psychosis: Status: Acute (3) Impulse control disorder, unspecified: Status: Acute DS: Medications Discharge Medications Home Medications: Previous Rx's ?Medication ?Instructions ?Recorded fluoxetine 20 mg tablet 20 mg PO DAILY 20 days #20 tabs 01/27/24 risperidone 1 mg tablet 1 mg PO TID PRN anger/agitation 30 01/27/24 days #30 tabs Mental Status Exam Mental Status Exam Narrative: Pt is alert and oriented; behavior is cooperative, friendly and calm; patient is not in distress; dressed in casual attire with unkempt hair but adequate hygiene; mood is described as great and affect congruent; eye contact appropriate; Speech is loud, but normal rate; staccato; not pressured; no psychomotor agitation/retardation present; thought process is concrete but goal oriented and logical. Thought content pertinent to relevant topics and without any delusional content, paranoid ideations or grandiosity; denies any SI/HI. There is no evidence of perceptual disturbance. Patients insight and judgment impaired adequate and at baseline. DS: Summary Hospital Course Hospital Course: Patient is a 18-year-old male with history of autism, depression, intermittent cocaine abuse who presents to the hospital for suicidal ideation in the face of his mother/primary administrative accountant becoming sick. Patient is somewhat of a limited historian due to autism. He says that he was feeling very depressed at home 4 weeks, because his mother was sick. He said he became suicidal and had the thought to hang himself but he was too afraid to . Patient says that he no longer has any suicidal ideation and says I felt better when I got to the hospital. Patient reports that he takes Prozac and trazodone. He says he stopped Risperdal because it made him too tired. He does not want it anymore and does not think he needs it. Patient reports he took it to help him with his mood swings and it did help however feels that he is doing better now and does not need it. He does however agree to have it changed to a p.r.n. and available if he starts to get angry. -ED note reports his mother recently had a stroke; According to EMS, earlier today, mother reported that the patient made SI gestures by putting a clothes stock hanger around his neck as if he was going to hang himself. Clinical reasoning/formulation: Patient has autism and intermittent mood lability, becoming emotionally reactive and sometimes dangerous. It has not clear if he has things under control enough to handle Risperdal just as a p.r.n. or if he needs a scheduled; however at this time he is refusing it other than as needed. He said he knows he will not be depressed when he goes home because his mother is now able to help him; it has not clear if patient understands mother's medical illness and if she is able to attend to him as she has in the past. Will gather collateral. Of note, he has been with appropriate behavior and impulse control on the unit, polite and appropriate with peers and staff. Hospital course: 01/22 remains stable, no aggression/anger; navigating milue and making some friendships. pt says he is great and denies any complaints, psychiatric symptoms. Says sleeping and eating well; overall approp w/ peers/staff. -made some sexual comments in group but did not appear to intentionally provoke and was redirectable Pt has no outpt services set up; given his Autism and mom's stroke, will need addtional support; SW discussing [facility] víctor 01/23 pt in good behavioral/impulse control until suddenly, after got off phone w/ mother, demanded to discharge and banged on door; he was never aggressive and and said hospital has no right to keep him here. He was redirectable. Staff then talked with patients mother who demanded that her son be discharged and acknowledged that she told her son to demand to leave the hospital. Mother calmed down and agreed son needed to stay to work out safe dispo. -medical underwriter later talked with pt who said he got angry because he wanted to go home but now accepts he'll stay the rest of the week. Pt shirtless and in bed and medical underwriter noticed gynecomastica. Building Construction Professor asked about hx of cocaine abuse and pt (for first time) acknowledged he has used it and that people in the neighborhood give it to him; he denies paying for it. -medical underwriter asked about getting back on risperdal or something else to help with anger (given outburst) but patient declined. Building Construction Professor agrees that this angry outburst was provoked and situational and given side-effects, pt may very well only need risperdal as a prn 01/24 denies psych symptoms; no complaints. Remains in good behavioral impulse control, overall appropriate with peers and staff -continue with dispo planning, [facility] víctor and setting up after care. Mom agrees with plan and wants him home. 01/25 stable; pt signed dmh víctor; continue current tx; proceed with dispo plan. Patient returning home with mom. Has increased outpatient support now that [facility] application initiated. Patient is not in imminent risk for harm to self or others appropriate to return to the community for treatment Medication: Continue Prozac 20 mg daily Risperdal 1 mg b.i.d. p.r.n. for agitation; Patient refuses scheduled Risperdal however agrees to have it changed to p.r.n. Time spent discussing smoking cessation with patient: 3 to 10 minutes Status at Discharge Functional status at discharge: independent ambulation Overall status at discharge: patient is back to baseline Time Spent with Patient Time attestation: Total time managing care of this patient today ____ minutes. Time spent: Less than 30 minutes Discharge Plan Discharge Anticipated Discharge Date/Time: 01/27/24 11:30 Patient Disposition: Home, Self-Care Discharge Diagnosis: ASD Referrals: Department of Mental Health Eligibility [Other] - 1 Week (This is their general number that you should call to inquire about application, if you do not hear from them in about a week.) [facility] Comprehensive Assessment Child w Gayla Barros [Other] - 02/06/24 11:00 am [facility] Psychiatric Appt. W Brady Dooley [Other] - 03/22/24 12:00 pm Physician,Unknown J [Primary Care Provider] - (Pt declined) Discharge Medications: New risperidone 1 mg Tablet 1 mg PO TID PRN (Reason: anger/agitation) 30 Days Qty: 30 1RF Continued fluoxetine 20 mg Tablet 20 mg PO DAILY 20 Days Qty: 20 1RF Discharge Orders: Discharge Order (Routine); Ordered 01/27/24 Ordered By: Edvin Otero Diet: Regular diet Activity on Discharge: As tolerated Stand Alone Forms: Patient Portal Discharge page, Community Support Print Language: Khmer Care Plan Goals: Maintain mood and safe behaviors Take medications as prescribed Continue to pursue sobriety Practice coping skills Continue with outpatient providers and reach out to them as needed Health Concerns: Mood stability and behaviors Sobriety Plan of Treatment: Follow up with your PCP, psychiatric provider and other outpatient providers regarding above concerns Take medications as prescribed Assessment: Risk assessment at time of discharge:? Patient was interviewed prior to discharge and found to be fully oriented and without any SI or HI. Patient has improved insight and judgment and wants to continue treatment. Patient is not in imminent risk of harm to self or others and has a safety plan that includes presenting to the closest ER or calling 911 if feeling unsafe.? Patient has been observed closely by nursing and unit staff throughout admission; patient has not engaged in any behaviors that suggest dangerousness to self or others and has demonstrated appropriate behaviors and impulse control Discharge Date/Time: 01/27/24 11:35
[2024-01-27] MEDS: Naloxone HCl Nasal TAKE HOME 4 MG SPRAY 8 MG NOSTRILALT (08:40)
[2024-01-27] MEDS: Nicotine Polacrilex 2 MG GUM 4 MG BUCCAL (09:30)
== END 2024-01-27 11:35 | disposition home or self-care (01) | DRG 751 ==
LOC: HO.ED 04:23 → HO.PM5 17:00
PROVIDERS: Clinical Nurse Specialist Psychiatric/Mental Health, Adult; Admitting Provider Psychiatry & Neurology Psychiatry; Emergency Provider Emergency Medicine; Visit Provider Psychiatry & Neurology Psychiatry
DX: F33.2 Major depressive disorder, recurrent severe without psychotic features (principal); R45.851 Suicidal ideations; F84.0 Autistic disorder; F63.9 Impulse disorder, unspecified; Z79.899 Other long term (current) drug therapy
CPT/HCPCS: 36415; 80048; 80061; 80076; 80307; 81001; 82607; 82746; 83036; 83735; 84439; 84443; 85025; 93005; 99285; S9485

== ENCOUNTER → 2024-01-18 10:41 | Outpatient (BNV) | payer OTHER, SELFPAY | PROVIDERS: Admitting Provider Psychiatry & Neurology Psychiatry; Emergency Provider Emergency Medicine; Visit Provider Internal Medicine | DX: R00.1 Bradycardia, unspecified (principal) | CPT/HCPCS: 93010 ==

== ENCOUNTER → 2024-01-18 16:35 | Outpatient (BNV) | payer OTHER, SELFPAY | PROVIDERS: Admitting Provider Psychiatry & Neurology Psychiatry; Emergency Provider Emergency Medicine; Visit Provider Psychiatry & Neurology Psychiatry | DX: F33.2 Major depressive disorder, recurrent severe without psychotic features (principal); F84.0 Autistic disorder; F63.9 Impulse disorder, unspecified | CPT/HCPCS: 99231; 99232 ==

== ENCOUNTER 2024-03-01 16:15 | Emergency (ER) | payer OTHER, SELFPAY ==
[2024-03-01 16:19] VITALS: BP 114/67; PULSE 98; O2SAT 97
[2024-03-01 16:29] VITALS: BP 123/78; PULSE 95; RESP 18; TEMP 37.2; O2SAT 98; BMI 27.4
[2024-03-01 16:45] LABS: Appearance Urine Clear; Color Urine Yellow; Glucose Urine UA Negative (Negative); Leukocyte Esterase Urine Negative (Negative); Nitrite Urine Negative (Negative); PH 8.5 (5.0-9.0); Specific Gravity - Urine 1.025 (1.005-1.025); UMIC TRIGGER UACC YES; Urine Blood Negative (Negative); Urine Ketones Trace mg/dL (Negative); Urine Protein 30 (1+) mg/dL (Neg-Trace)
[2024-03-01 16:47] LABS: Bacteria Urine None Seen (None Seen); Hyaline Casts Urine 0-2 /LPF (0-2); RBC Urine 0-2 /HPF (0-2); Squamous Epithelial Cell Urine 0-2 /HPF (0-2); WBC Urine 0-5 /HPF (0-5)
[2024-03-01 16:55] LABS: Amphetamine Screen Urine Not Detected (Not Detect); Barbiturates, Urine Not Detected (Not Detect); Benzodiazepines Screen Urine Not Detected (Not Detect); Buprenorphine Scr Not Detected (Not Detect); Cannabinoid Screen Urine Not Detected (Not Detect); Cocaine Screen Urine Not Detected (Not Detect); Fentanyl, urine Not Detected (Not Detect); Methadone Screen, Urine Not Detected (Not Detect); Opiate Screen Urine Not Detected (Not Detect); Oxycodone Screen Urine Not Detected (Not Detect); Phencyclidine Screen Urine Not Detected (Not Detect)
--- NOTE | 2024-03-01 18:25 | ED.GENADULT ---
HPI - General Adult General Chief complaint: Behavioral Concerns Stated complaint: crisis,arm pain Time Seen by Provider: 03/01/24 17:11 Source: patient Mode of arrival: ambulatory History of Present Illness ED Provider: Mario BRAGA HPI narrative: 18 year old M presenting with acute psych crisis following argument with mother at home. He states he has been struggling to get along with his mother recently and states that she is trying to control his life. Patient does not work or go to school currently. He wishes to no longer live at home, stating it is only him and his mother who occupy the home. He admits to not taking his medications for the past few weeks. Patient was cooperative and states he just wants to catch up on some sleep. Patient reports his arm feels sore sp police grabbing his arm but no longer hurting. Denies SI/HI. Per nursing note patient was combative initially but caml and collected after arrival here Related Data Previous Rx's ?Medication ?Instructions ?Recorded fluoxetine 20 mg tablet 20 mg PO DAILY 20 days #20 tabs 01/27/24 risperidone 1 mg tablet 1 mg PO TID PRN anger/agitation 30 01/27/24 days #30 tabs Allergies Allergy/AdvReac Type Severity Reaction Status Date / Time No Known Allergies Allergy Verified 03/01/24 16:29 Review of Systems Review of Systems: Yes all other systems are reviewed and are negative PMFSH Past Medical History Attestation statement: The following information was validated with the patient. Source: old records reviewed and nursing notes reviewed Medical History MDD (major depressive disorder), recurrent severe, without psychosis Substance abuse Autism Social History Social History Household Members: Other Household Members Other:: mother Housing: Apartment Do you presently have visiting nurse or other home services: No Comment: [phone] Patient Tobacco Use Status: Never used Tobacco Tobacco use type: Cigarette Cigarette Packs Per Day: 0.5 Cigarettes Per Day: 10.0 Years Smoked: 1 e-Cigarette/Vaping Use: Never Used Second Hand Smoke Exposure: No Substance Use Type: Crack/Cocaine and Marijuana Advance Directives: No Advance Directives Information Provided: No Do you have a plan to hurt others: No Plan service: No Current occupational status: student Sexual orientation: Unable to collect Physical Exam ED Vital Signs: Vital Signs - 24 hr 03/01/24 16:29 Temperature 99.0 F Pulse Rate 95 Respiratory Rate 18 Blood Pressure 123/78 Pulse Oximetry 98 Oxygen Delivery Method Room Air BMI result Body Mass Index 27.4 VSS Appearance: Alert.? Oriented X3.? No acute distress.? Head: Normocephalic, atraumatic, no step-offs or deformities Eyes: Pupils equal, round and reactive to light.? Neck: Normal inspection.? Neck supple.? CVS: Normal heart rate and rhythm.? Pulses normal.? Respiratory: No respiratory distress.? Breath sounds normal.? Abdomen: Soft and nontender.? Skin: Skin warm and dry.? Normal skin color.? Normal skin turgor.? Extremities: No lower extremity edema.? No calf ttp. 5/5 strength to bilateral upper and lower extremities Back: No midline tenderness, no C-spine tenderness, full range of motion, no CVA tenderness bilaterally Neuro: Oriented X 3.? No motor deficit.? No sensory deficit. CN 2-12 intact Course Reevaluation(s) Reevaluation #1: Urine toxicology negative. Time: 22:41 Reevaluation #2: CBC with slight leukocytosis no left shift this is likely reactive. Chemistry no acute findings needing intervention. UA without infection. At this time patient to be placed into observation to allow more time to be evaluated by care team. At time observation was started patient common cooperative no acute distress stable vital signs noted. Will continue to monitor Time: 23:39 Medical Decision Making Medical Decision Making [facility] Narrative: 18 year old M presenting with acute psych crisis following arugement with mother at home. PE - benign Hx and pe suspicious for acute agitation vs drug use vs intoxication vs UTI. Unlikely stroke, seizure, meningitis, encephalitis. No signs of nv compromise, threat to limb, fx/ dislocations. I do not suspect acute metabolic derangments Pending - labs, urine Differential Diagnosis Differential Diagnoses: The differential diagnosis associated with the presentation includes Hx and pe suspicious for acute agitation vs drug use vs intoxication vs UTI. Unlikely stroke, seizure, meningitis, encephalitis. No signs of nv compromise, threat to limb, fx/ dislocations. I do not suspect acute metabolic derangments Admission/Observation Consideration of admission/observation: Escalation of care including admission/observation considered Lab Data MDM Lab Attestation statement: I reviewed the patient's lab results. 03/01/24 22:47 03/01/24 22:47 Labs: Lab Results 03/01/24 03/01/24 Range/Units 16:37 22:47 WBC 11.2 H (4.8-10.8) X10*3/uL RBC 4.53 L (4.60-5.80) X10*6/uL Hgb 14.0 (14.0-18.0) g/dl Hct 39.2 L (42.0-52.0) % MCV 86.5 (80.0-98.0) fL MCH 30.9 (27.0-33.0) pg MCHC 35.7 (31.0-36.0) g/dl RDW 11.9 (11.0-16.0) % Plt Count 220 (160-400) X10*3/uL MPV 9.5 (9.4-12.4) fL Immature Gran % (Auto) 0.3 (0.0-0.4) % Neut % (Auto) 60.9 (45-73) % Lymph % (Auto) 20.0 (20-40) % Dickson % (Auto) 6.9 (2-11) % Eos % (Auto) 11.1 H (0-4) % Baso % (Auto) 0.8 (0-2) % Lymph # (Auto) 2.2 (1.2-4.9) X10*3/uL Dickson # (Auto) 0.8 (0.1-1.2) X10*3/uL Eos # (Auto) 1.3 H (0.0-0.4) X10*3/uL Baso # (Auto) 0.1 (0.0-0.2) X10*3/uL Abs Immat Gran (auto) 0.03 (0.00-0.03) X10*3/uL Absolute Neuts (auto) 6.8 (2.0-8.3) x10*3/uL Absolute Nucleated RBC 0.000 (0.0-0.012) X10*3/uL Nucleated RBC % (auto) 0.0 (0.0-0.2) /100WBC Sodium 143 (135-145) mmol/L Potassium 4.0 (3.3-5.1) mmol/L Chloride 110 H (96-108) mmol/L Carbon Dioxide 24 (22-29) mmol/L Anion Gap 13 (12-20) BUN 6 L (9-16) mg/dL Creatinine 0.70 (0.5-1.4) mg/dL Estim Creat Clear Calc 170.0 Estimated GFR > 60 Random Glucose 101 (60-115) mg/dL Calcium 9.8 (8.4-10.2) mg/dL Total Bilirubin 0.4 (0.0-1.0) mg/dL AST 19 (5-37) U/L ALT 29 (0-40) U/L Alkaline Phosphatase 73 (39-117) U/L Total Protein 7.2 (6.5-8.0) g/dL Albumin 4.1 (3.5-5.0) g/dL Urine Color Yellow Urine Appearance Clear Urine pH 8.5 (5.0-9.0) Ur Specific [place] 1.025 (1.005-1.025) Urine Protein 30 (1+) H (Neg-Trace) mg/dL Urine Glucose (UA) Negative (Negative) mg/dL Urine Ketones Trace (Negative) mg/dL Urine Blood Negative (Negative) Urine Nitrite Negative (Negative) Ur Leukocyte Esterase Negative (Negative) Urine RBC 0-2 (0-2) /HPF Urine WBC 0-5 (0-5) /HPF Ur Squamous Epith Cells 0-2 (0-2) /HPF Urine Bacteria None Seen (None Seen) Hyaline Casts 0-2 (0-2) /LPF Urine Opiates Screen Not Detected (Not Detect) Ur Buprenorphine Scrn Not Detected (Not Detect) ng/mL Ur Oxycodone Screen Not Detected (Not Detect) ng/mL Urine Methadone Screen Not Detected (Not Detect) ng/mL Urine Fentanyl Screen Not Detected (Not Detect) Ur Barbiturates Screen Not Detected (Not Detect) Ur Phencyclidine Scrn Not Detected (Not Detect) Ur Amphetamines Screen Not Detected (Not Detect) U Benzodiazepines Scrn Not Detected (Not Detect) Urine Cocaine Screen Not Detected (Not Detect) U Marijuana (THC) Screen Not Detected (Not Detect) Ethyl Alcohol < 10 mg/dL External Record Review External record reviewed: Inpatient record, Office record, Outpatient record, Prior outpatient labs, Prior outpatient radiology, Primary care record and Outside ED record Chronic Conditions Patient?s care impacted by: Other (MDD, impulse conrol disorder, autism ) Critical Care Time Critical Care Time Critical Care Time: No Discharge Plan Discharge Clinical Impression: Impulse control disorder, unspecified, Autism spectrum disorder Patient Disposition: Still a Patient Prescriptions: No Action risperidone 1 mg Tablet 1 mg PO TID PRN (Reason: anger/agitation) 30 Days Qty: 30 1RF fluoxetine 20 mg Tablet 20 mg PO DAILY 20 Days Qty: 20 1RF Print Language: Slovenian
[2024-03-01 22:52] LABS: MANUAL DIFF FLAG NO
[2024-03-01 22:55] LABS: Basophils Absolute Auto 0.1 X10*3/uL (0.0-0.2); Basophils Percent Auto 0.8 % (0-2); Eosinophils Absolute Auto 1.3 X10*3/uL (0.0-0.4); Eosinophils Percent Auto 11.1 % (0-4); Hematocrit 39.2 % (42.0-52.0); Imm Gran Abs Auto 0.03 X10*3/uL (0.00-0.03); Imm Gran Pct Auto 0.3 % (0.0-0.4); Lymphocytes Absolute Auto 2.2 X10*3/uL (1.2-4.9); Mean Corpuscular HGB Conc 35.7 g/dl (31.0-36.0); Mean Corpuscular Hemoglobin 30.9 pg (27.0-33.0); Mean Corpuscular Volume 86.5 fL (80.0-98.0); Mean Platelet Volume 9.5 fL (9.4-12.4); Monocytes Absolute Auto 0.8 X10*3/uL (0.1-1.2); Monocytes Percent Auto 6.9 % (2-11); Neutrophils Absolute Auto 6.8 x10*3/uL (2.0-8.3); Neutrophils Percent Auto 60.9 % (45-73); Platelet Count 220 X10*3/uL (160-400); Red Blood Count 4.53 X10*6/uL (4.60-5.80); Red Cell Distribution Width 11.9 % (11.0-16.0); White Blood Count 11.2 X10*3/uL (4.8-10.8)
--- NOTE | 2024-03-01 23:08 | PC.NURSE ---
patient appears to remain at rest presently respirations are even and unlabored patient appears in no distress.
[2024-03-01 23:09] LABS: Alanine Aminotransferase 29 U/L (0-40); Albumin Level 4.1 g/dL (3.5-5.0); Alkaline Phosphatase 73 U/L (39-117); Anion Gap 13 (12-20); Aspartate Amino Transferase 19 U/L (5-37); Bilirubin Total 0.4 mg/dL (0.0-1.0); Blood Urea Nitrogen 6 mg/dL (9-16); Calcium 9.8 mg/dL (8.4-10.2); Carbon Dioxide 24 mmol/L (22-29); Chloride 110 mmol/L (96-108); Estimated Glomerular Filt Rate > 60; Ethanol < 10 mg/dL; Glucose Random 101 mg/dL (60-115); Sodium 143 mmol/L (135-145); Total Protein 7.2 g/dL (6.5-8.0)
[2024-03-02 06:17] VITALS: BP 123/78; PULSE 77; RESP 19; TEMP 36.2; O2SAT 98
--- NOTE | 2024-03-02 06:41 | PC.NURSE ---
Pt resting with eyes closed, up to the bathroom once on this RN shift, no complaints offered at the time. back to bed and back to sleep.
--- NOTE | 2024-03-02 07:31 | PC.NURSE ---
Assumed care of patient at 0645, patient currently sleeping, respirations even and unlabored, no apparent distress noted. Continue plan of care for CARE team re-eval this am
[2024-03-02 08:53] VITALS: BP 118/86; PULSE 71; RESP 14; TEMP 36.7; O2SAT 96
== END 2024-03-02 09:06 | disposition home or self-care (01) ==
PROVIDERS: Physician Assistant; Emergency Provider Internal Medicine
DX: F63.9 Impulse disorder, unspecified (principal); F84.0 Autistic disorder; Z79.899 Other long term (current) drug therapy; Z51.81 Encounter for therapeutic drug level monitoring
CPT/HCPCS: 36415; 80053; 80307; 81001; 85025; 99284; S9485

== ENCOUNTER 2024-11-10 16:59 | Emergency (ER) | payer OTHER, SELFPAY ==
[2024-11-10 17:11] VITALS: BP 121/72; PULSE 72; RESP 16; TEMP 35.9; O2SAT 97; BMI 27.0
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
--- OUTSIDE RECORDS SUMMARY | 2024-11-10 17:45 | XMS_ITS | Encounter Summary ---
Author Organization [facility] Address [address] [place] [address] Phone Care Team Providers Care Acting Instructor Name Role Phone Karmen Kirby MD Primary Care Provider [phone] Reason for Visit * Reason Comments Med Refill Encounter Details Date Type Department Care Team ([facility] st Contact Info) Description 04/02/2022 Refill [facility] [place] [address] [place] [address] Maria Teresa Fiore MD [address] [facility] [address] [place] [address] Flexural atopic dermatitis Social History Tobacco Use Types Packs/Day Years Used Date Smoking Tobacco: Never Smokeless Tobacco: Never Comments:Never smoker Alcohol Use Standard Drinks/Week Comments Never 0 (1 standard drink = 0.6 oz pur e alcohol) Hunger/Food Answer Date Recorded In the last 12 months, did y ou or your family ever eat less than you felt you should because there wasn't enough money for food? No 01/13/2022 Stable Housing Answer Date Recorded Are you worried that in the next 2 months you may not have stable housing? No 01/13/2022 Transportation Concerns Answer Date Rec orded In the last 12 months, have you or your family ever had to go without healthcare because you didn't have a way to get there? No 01/13/2022 Hazards in Home Answer Date Recorded Think about the place you li ve. Do you have problems with any of the following? Pests (mice or roaches), mold, no/not working smoke detectors, water leaks, no window guards. No 2021 Financing Utilities Answer Date Recorde d In the last 12 months, has t he electric, gas, oil, or water company threatened to shut off your services in your home? No 01/13/2022 Safety at Home Answer Date Recorded Are you or your family worried about feeling saf e in your home? No 01/13/2022 Outside Support Answer Date Recorded Do you feel that you need mo re support from other people or programs to help you care for yourself or your family? No 01/13/2022 Understanding Health Concerns Answer Da te Recorded Do you need help understandi ng your or your child's healthcare needs (diagnosis, medications, plan, etc.)? No 01/13/2022 Financing Health Concerns Answer Date R ecorded In the last 12 months, was t here a time when your child needed to see a doctor or get medications or supplies but could not because of cost? No 01/13/2022 Missing School or Work Answer Date Ricky rded Did you or your child miss s chool or work because of a health problem that could have been avoided? No 01/13/2022 Sex and Gender Information Value Date Recorded Sex Assigned at Male 12/29/2020 4:01 PM EDT Legal Sex Male 5:12 PM EDT Gender Identity Male 12/29/2020 4:01 PM EDT Sexual Orientation Straight 12/21/2019 8: 28 PM EDT documented as of this encounter Miscellaneous Notes * Telephone Encounter - Kitty Cabrales LPN - 04/02/2022 10:51 AM EDT Faxed refill request / call to teen to remind him of the need to schedule med check / message left with adult female asking that he call the office documented in this encounter Plan of Treatment Not on file documented as of this encounter Visit Diagnoses Diagnosis Flexural atopic dermatitis Other atopic dermatitis and related conditions documented in this encounter Care Teams Acting Instructor Relationship Specialty Start Date End Date Karmen Kirby MD [address] [place] [id number] PCP - General Pediatrics 06/29/23 11/13/23 documented as of this encounter
--- OUTSIDE RECORDS SUMMARY | 2024-11-10 17:45 | XMS_ITS | Encounter Summary ---
Author Organization [facility] Address [address] [place] [phone] Phone Care Team Providers Care Administrator Health Care Facility Name Role Phone Karmen Kirby MD Primary Care Provider [phone] Reason for Visit * Reason Comments Med Refill Encounter Details Date Type Department Care Team (Late st Contact Info) Description 03/27/2022 Refill [facility] - [place] [address] [place] [address] Cherri Barajas MD [address] [place] [address] Depressed mood Social History Tobacco Use Types Packs/Day Years [...] encounter Miscellaneous Notes * Telephone Encounter - Aylin Zambrano MA - 03/30/2022 9:59 AM EDT Call placed to dad. They will be at the appt. No transportation barriers noted. Reminded the date and time. Can talk about [employer] [place] at the appt. * Telephone Encounter - Maria Teresa Fiore MD - 03/29/2022 6:32 PM EDT Could we please reach out and try to make sure that David and father are panning to attend his SSRI med f/up on 04/14 and have no transportation needs. It would be nice to have [facility] touch base with himand introduce the [facility] program to them. * Telephone Encounter - Dasia Prado RN - 03/29/2022 10:28 AM EDT Pharm requesting med refill of Fluoxetine 20mg. Upcoming med check 04/14/22. documented in this encounter Plan of Treatment Not on file documented as of this encounter Visit Diagnoses Diagnosis Depressed mood documented in this encounter Care Teams Administrator Health Care Facility Relationship Specialty Start Date End Date Karmen Kirby MD [address] [place] [address] PCP - General Pediatrics 06/29/23 11/13/23 documented as of this encounter
--- OUTSIDE RECORDS SUMMARY | 2024-11-10 17:45 | XMS_ITS | Encounter Summary ---
Author Organization [facility] Address [address] [place] [address] Phone Care Team Providers Care Apartment Coordinator Name Role Phone Karmen Kirby MD Primary Care Provider [phone] Reason for Visit * Reason Comments Med Refill Encounter Details Date Type Department Care Team ([facility] st Contact Info) Description 08/18/2020 Refill [facility] [place] [address] [place] [address] Maria Teresa Fiore MD [address] [facility] [place] [address] Depressed mood Social History Tobacco Use Types [...] there wasn't enough money for food? No 12/21/2019 Stable Housing Answer Date Recorded Are you worried that in the next 2 months you may not have stable housing? Yes 12/21/2019 Transportation Concerns Answer Date Rec orded In the last 12 months, have you or your family ever had to go without healthcare because you didn't have a way to get there? No 12/21/2019 Hazards in Home Answer Date Recorded Think about the place you li ve. Do you have problems with any of the following? Pests (mice or roaches), mold, no/not working smoke detectors, water leaks, no window guards. No 2019 Financing Utilities Answer Date Recorde d In the last 12 months, has t he electric, gas, oil, or water company threatened to shut off your services in your home? No 12/21/2019 Safety at Home Answer Date Recorded Are you or your family worried about feeling saf e in your home? No 12/21/2019 Outside Support Answer Date Recorded Do you feel that you need mo re support from other people or programs to help you care for yourself or your family? No 12/21/2019 Understanding Health Concerns Answer Da te Recorded Do you need help understandi ng your or your child's healthcare needs (diagnosis, medications, plan, etc.)? No 12/21/2019 Financing Health Concerns Answer Date R ecorded In the last 12 months, was t here a time when your child needed to see a doctor or get medications or supplies but could not because of cost? No 12/21/2019 Missing School or Work Answer Date Ricky rded Did you or your child miss s chool or work because of a health problem that could have been avoided? No 12/21/2019 Sex and Gender Information Value Date Recorded Sex Assigned at Male 12/29/2020 4:01 PM EDT Legal Sex Male 5:12 PM EDT Gender Identity Male 12/29/2020 4:01 PM EDT Sexual Orientation Straight 12/21/2019 8: 28 PM EDT documented as of this encounter Miscellaneous Notes * Telephone Encounter - Maria Teresa Fiore MD - 08/22/2020 8:41 AM EST This is way too far out. Please find a creative place to put him in sooner. I think I could do david in a 15 spot, especially if it is before a COVID 19 block, or just before a double well.I could do a telephone visit as a last resort, but I would also love to get him signed up for the MyChart to allow a zoom option. * Telephone Encounter - Grace Rosado LPN - 08/21/2020 9:38 AM EST Dad called for refill on the Sertraline, says he only has 2 or 3 left. Looks like tomorrows appt was rescheduled for 09/17/20./JOD * Telephone Encounter - Suri Lora LPN - 08/19/2020 10:11 AM EST Spoke to father who is presently at work. He will count the tabs once he gets home and call [facility] back. * Telephone Encounter - Maria Teresa Fiore MD - 08/19/2020 9:56 AM EST Please see if David needs the refill now, as I am scheduled to see him him on Tuesday for Depression F/up, and hate to send a new supply now if we might be making a change- but he can't run out, so please see if he has the 4 tabs left to make it to the visit * Telephone Encounter - Suri Lora LPN - 08/18/2020 9:53 AM EST Pharm request for refill on sertraline 25 mgs. Last pe 12/2019 Last yovany 03/2020 documented in this encounter Plan of Treatment Not on file documented as of this encounter Visit Diagnoses Diagnosis Depressed mood documented in this encounter Care Teams Apartment Coordinator Relationship Specialty Start Date End Date Karmen Kirby MD [address] [place] [address] PCP - General Pediatrics 06/29/23 11/13/23 documented as of this encounter
--- OUTSIDE RECORDS SUMMARY | 2024-11-10 17:45 | XMS_ITS | Encounter Summary ---
Author Organization [facility] Address [address] [place] [address] Phone Care Team Providers Care Narcotics Investigator Name Role Phone Karmen Kirby MD Primary Care Provider [phone] Reason for Visit * Reason Comments Med Refill Encounter Details Date Type Department Care Team ([facility] st Contact Info) Description 04/15/2021 Refill [facility] [place] [address] [place] [address] Maria Teresa Fiore MD [address] [facility] [address] [place] [address] Mild intermittent asthma without complication Social History Tobacco Use Types Packs/Day Years [...] there wasn't enough money for food? No 12/29/2020 Stable Housing Answer Date Recorded Are you worried that in the next 2 months you may not have stable housing? Yes 12/29/2020 Transportation Concerns Answer Date Rec orded In the last 12 months, have you or your family ever had to go without healthcare because you didn't have a way to get there? No 12/29/2020 Hazards in Home Answer Date Recorded Think about the place you li ve. Do you have problems with any of the following? Pests (mice or roaches), mold, no/not working smoke detectors, water leaks, no window guards. No 2020 Financing Utilities Answer Date Recorde d In the last 12 months, has t he electric, gas, oil, or water company threatened to shut off your services in your home? No 12/29/2020 Safety at Home Answer Date Recorded Are you or your family worried about feeling saf e in your home? No 12/29/2020 Outside Support Answer Date Recorded Do you feel that you need mo re support from other people or programs to help you care for yourself or your family? No 12/29/2020 Understanding Health Concerns Answer Da te Recorded Do you need help understandi ng your or your child's healthcare needs (diagnosis, medications, plan, etc.)? No 12/29/2020 Financing Health Concerns Answer Date R ecorded In the last 12 months, was t here a time when your child needed to see a doctor or get medications or supplies but could not because of cost? No 12/29/2020 Missing School or Work Answer Date Ricky rded Did you or your child miss s chool or work because of a health problem that could have been avoided? Yes 12/29/2020 Sex and Gender Information Value Date Recorded Sex Assigned at Male 12/29/2020 4:01 PM EDT Legal Sex Male 5:12 PM EDT Gender Identity Male 12/29/2020 4:01 PM EDT Sexual Orientation Straight 12/21/2019 8: 28 PM EDT documented as of this encounter Plan of Treatment Not on file documented as of this encounter Visit Diagnoses Diagnosis Mild intermittent asthma without complication documented in this encounter Care Teams Narcotics Investigator Relationship Specialty Start Date End Date Karmen Kirby MD [address] [place] [address] PCP - General Pediatrics 06/29/23 11/13/23 documented as of this encounter
--- OUTSIDE RECORDS SUMMARY | 2024-11-10 17:45 | XMS_ITS | Encounter Summary ---
Author Organization [facility] Address [address] [place] [address] Phone Care Team Providers Care Resident Service Coordinator Name Role Phone Karmen Kirby MD Primary Care Provider [phone] Reason for Visit * Reason Comments Med Refill Encounter Details Date Type Department Care Team ([facility] st Contact Info) Description 03/27/2022 Refill [facility] [place] [address] [place] [address] Maria Teresa Fiore MD 193 [facility] 2 [place] [address] Sleep disturbance Social History Tobacco Use Types Packs/Day Years [...] encounter Miscellaneous Notes * Telephone Encounter - Dasia Prado RN - 03/29/2022 10:26 AM EDT Pharm requesting med refill of Trazodone 100mg. Upcoming med check 04/14/22. documented in this encounter Plan of Treatment Not on file documented as of this encounter Visit Diagnoses Diagnosis Sleep disturbance Unspecified sleep disturbance documented in this encounter Care Teams Resident Service Coordinator Relationship Specialty Start Date End Date Karmen Kirby MD [address] [place] [address] PCP - General Pediatrics 06/29/23 11/13/23 documented as of this encounter
--- OUTSIDE RECORDS SUMMARY | 2024-11-10 17:45 | XMS_ITS | Encounter Summary ---
Author Organization [facility] Address [address] [place] [address] Phone Care Team Providers Care Team Guide Name Role Phone Karmen Kirby MD Primary Care Provider [phone] Reason for Visit * Reason Comments Med Refill Encounter Details Date Type Department Care Team ([facility] st Contact Info) Description 03/09/2022 Refill [facility] [place] [address] [place] [address] Maria Teresa Fiore MD [address] [facility] [address] [place] [address] Flexural atopic dermatitis Social History Tobacco Use [...] Telephone Encounter - Aylin Zambrano MA - 03/10/2022 11:57 AM EDT Dad was at work and the call dropped while we were talking. Did not ask about DDS or other services. He was in a bad cell service location. * Telephone Encounter - Aylin Zambrano MA - 03/10/2022 11:55 AM EDT Appt booked for 04/14 at 0830. They missed last víctor as dad works and sometimes can not get out of work. No transportation needed. I will send me a reminder to call dad a few days prior to the appt. Stressed the importance to keep appts so pt can get refills. * Telephone Encounter - Maria Teresa Fiore MD - 03/09/2022 7:51 PM EDT Refill sent but with no refills- David overdue for SSRI and eczema f/up- may need PT1 support- [facility] team involved but further assist needed. * Telephone Encounter - Dasia Prado RN - 03/09/2022 2:36 PM EDT Pharm requesting refill of hydroxyzine 25 mg. Last PE 01/13/22. Call placed to dad with teen release. Dad states refill is needed. documented in this encounter Plan of Treatment Not on file documented as of this encounter Visit Diagnoses Diagnosis Flexural atopic dermatitis Other atopic dermatitis and related conditions documented in this encounter Care Teams Team Guide Relationship Specialty Start Date End Date Karmen Kirby MD [address] [place] [address] PCP - General Pediatrics 06/29/23 11/13/23 documented as of this encounter
--- OUTSIDE RECORDS SUMMARY | 2024-11-10 17:46 | XMS_ITS | Encounter Summary ---
Author Organization [facility] Address [address] [place] [address] Phone Care Team Providers Care Cancer Program Consultant Name Role Phone Karmen Kirby MD Primary Care Provider [phone] Reason for Visit * Reason Comments Med Refill Encounter Details Date Type Department Care Team (Late st Contact Info) Description 10/04/2019 Refill [facility] [place] [address] [place] [address] Sole Ng MD [address] [place] [address] Mild intermittent asthma without complication Social History Tobacco Use Types Packs/Day Years Used Date Smoking Tobacco: Never Smokeless Tobacco: Never Comments:Never smoker Alcohol Use Standard Drinks/Week Comments Never 0 (1 standard drink = 0.6 oz pur e alcohol) Hunger/Food Answer Date Recorded No 09/21/2018 Stable Housing Answer Date Recorded No 07/19/2019 Transportation Concerns Answer Date Rec orded No 09/21/2018 Hazards in Home Answer Date Recorded No 09/21/2018 Financing Utilities Answer Date Recorde d No 09/21/2018 Safety at Home Answer Date Recorded No 09/21/2018 Outside Support Answer Date Recorded No 09/21/2018 Understanding Health Concerns Answer Da te Recorded No 09/21/2018 Financing Health Concerns Answer Date R ecorded No 09/21/2018 Missing School or Work Answer Date Ricky rded No 09/21/2018 Sex and Gender Information Value Date Recorded Sex Assigned at Male 12/29/2020 4:01 PM EDT Legal Sex Male 5:12 PM EDT Gender Identity Male 12/29/2020 4:01 PM EDT Sexual Orientation Straight 12/21/2019 8: 28 PM EDT documented as of this encounter Miscellaneous Notes * Telephone Encounter - Arun Alexander LPN - 10/04/2019 11:28 AM EDT [facility] albuterol. Last PE 09/21/18. documented in this encounter Plan of Treatment Not on file documented as of this encounter Visit Diagnoses Diagnosis Mild intermittent asthma without complication documented in this encounter Care Teams Cancer Program Consultant Relationship Specialty Start Date End Date Karmen Kirby MD [address] [place] [address] PCP - General Pediatrics 06/29/23 11/13/23 documented as of this encounter
--- OUTSIDE RECORDS SUMMARY | 2024-11-10 17:46 | XMS_ITS | Encounter Summary ---
Author Organization [facility] Address [address] [place] [address] Phone Care Team Providers Care Claims Manager Name Role Phone Karmen Kirby MD Primary Care Provider [phone] Reason for Visit * Reason Comments Med Refill Encounter Details Date Type Department Care Team (Late st Contact Info) Description 10/02/2019 Refill [facility] [place] [address] [place] [address] Karmen Kirby MD [address] [place] [address] Seasonal allergic rhinitis due to pollen Social History Tobacco Use Types Packs/Day Years [...] encounter Miscellaneous Notes * Telephone Encounter - Srui Lora LPN - 10/02/2019 11:28 AM EDT Needs refill on Loratadine 10 mg tabs. Last pe documented in this encounter Plan of Treatment Not on file documented as of this encounter Visit Diagnoses Diagnosis Seasonal allergic rhinitis due to pollen documented in this encounter Care Teams Claims Manager Relationship Specialty Start Date End Date Karmen Kirby MD [address] [place] [address] PCP - General Pediatrics 06/29/23 11/13/23 documented as of this encounter
--- OUTSIDE RECORDS SUMMARY | 2024-11-10 17:46 | XMS_ITS | Encounter Summary ---
Author Organization [facility] Address [address] [place] [address] Phone Care Team Providers Care Urologic Surgeon Name Role Phone Karmen Kirby MD Primary Care Provider [phone] Reason for Visit * Reason Comments Med Refill Encounter Details Date Type Department Care Team ([facility] st Contact Info) Description 05/04/2020 Refill [facility] [place] [address] [place] [address] Maria Teresa Fiore MD [address] [facility] [address] [place] [address] Seasonal allergic rhinitis due to pollen Social [...] Telephone Encounter - Aylin Zambrano MA - 05/05/2020 10:49 AM EDT Pharm refill request for Loratadine Message to [facility] visit current Pt did have flu vaccine documented in this encounter Plan of Treatment Not on file documented as of this encounter Visit Diagnoses Diagnosis Seasonal allergic rhinitis due to pollen documented in this encounter Care Teams Urologic Surgeon Relationship Specialty Start Date End Date Karmen Kirby MD [address] [place] [address] PCP - General Pediatrics 06/29/23 11/13/23 documented as of this encounter
--- OUTSIDE RECORDS SUMMARY | 2024-11-10 17:46 | XMS_ITS | Encounter Summary ---
Author Organization [facility] Address [address] [place] [address] Phone Care Team Providers Care Kids Activities Coach Name Role Phone Karmen Kirby MD Primary Care Provider [phone] Reason for Visit * Reason Comments Med Refill Encounter Details Date Type Department Care Team ([facility] st Contact Info) Description 03/13/2020 Refill [facility] [place] [address] [place] [address] Maria Teresa Fiore MD [address] [facility] [address] [place] [address] Depressed mood Social History Tobacco Use Types [...] Encounter - Maria Teresa Fiore MD - 03/13/2020 12:53 PM EDT Refill authorized for 14 days to carry through until next med f/up 03/19/20. * Telephone Encounter - Tasia Corrales LPN - 03/13/2020 7:39 AM EDT Pharm requesting refill sertraline. Last fill 02/19, has appt for 03/19 for f/u. EH documented in this encounter Plan of Treatment Not on file documented as of this encounter Visit Diagnoses Diagnosis Depressed mood documented in this encounter Care Teams Kids Activities Coach Relationship Specialty Start Date End Date Karmen Kirby MD [address] [place] [address] PCP - General Pediatrics 06/29/23 11/13/23 documented as of this encounter
--- OUTSIDE RECORDS SUMMARY | 2024-11-10 17:46 | XMS_ITS | Encounter Summary ---
Author Organization [facility] Address [address] [place] [address] Phone Care Team Providers Care Site Acquisition Specialist Name Role Phone Karmen Kirby MD Primary Care Provider [phone] Reason for Visit * Reason Comments Med Refill Encounter Details Date Type Department Care Team ([facility] st Contact Info) Description 07/22/2020 Refill [facility] [place] [address] [place] [address] Maria Teresa Fiore MD 193 [facility] [place] [place] [address] Depressed mood Social History Tobacco Use Types [...] encounter Miscellaneous Notes * Telephone Encounter - Grace Rosado LPN - 07/22/2020 11:08 AM EST Message left to call and make FU appointment/JOD * Telephone Encounter - Maria Teresa Fiore MD - 07/22/2020 10:59 AM EST 30 day Rx sent in, but David is due for a Mood/SSRI med mgmt follow up, so please schedule for sometime in the next 4 weeks. * Telephone Encounter - Grace Rosado LPN - 07/22/2020 10:01 AM EST Refill request for Sertraline. Last PE 12/21/19, last FU 03/19/20/BILL documented in this encounter Plan of Treatment Not on file documented as of this encounter Visit Diagnoses Diagnosis Depressed mood documented in this encounter Care Teams Site Acquisition Specialist Relationship Specialty Start Date End Date Karmen Kirby MD [address] [place] [address] PCP - General Pediatrics 06/29/23 11/13/23 documented as of this encounter
--- OUTSIDE RECORDS SUMMARY | 2024-11-10 17:46 | XMS_ITS | Encounter Summary ---
Author Organization [facility] Address [address] [place] [address] Phone Care Team Providers Care President & [employer] Name Role Phone Karmen Kirby MD Primary Care Provider [phone] Reason for Visit * Reason Comments Med Refill Encounter Details Date Type Department Care Team ([facility] st Contact Info) Description 06/27/2022 Refill [facility] [place] [address] [place] [address] Maria Teresa Fiore MD [address] [facility] [address] [place] [address] Depressed mood Social History Tobacco Use Types [...] Telephone Encounter - Dasia Prado RN - 06/28/2022 9:18 AM EST Pharmacy requesting med refill of Fluoxetine 20mg. Last med check 04/14/22. Upcoming med check 07/13/22. documented in this encounter Plan of Treatment Not on file documented as of this encounter Visit Diagnoses Diagnosis Depressed mood documented in this encounter Care Teams President & [employer] Relationship Specialty Start Date End Date Karmen Kirby MD [address] [place] [address] PCP - General Pediatrics 06/29/23 11/13/23 documented as of this encounter
--- OUTSIDE RECORDS SUMMARY | 2024-11-10 17:46 | XMS_ITS | Encounter Summary ---
Author Organization [facility] Address [address] [place] [address] Phone Care Team Providers Care Cementing Machine Operator Name Role Phone Karmen Kirby MD Primary Care Provider [phone] Encounter Details Date Type Department Care Team (Late st Contact Info) Description 05/10/2016 Documentation [facility] [place] [facility] [address] [place] [address] Family Medicine, Physician [address] [place] [address] Social History Tobacco Use Types Packs/Day Years Used Date Smoking Tobacco: Never Assessed Sex and Gender Information Value Date Recorded Sex Assigned at Male 12/29/2020 4:01 PM EDT Legal Sex Male 5:12 PM EDT Gender Identity Male 12/29/2020 4:01 PM EDT Sexual Orientation Straight 12/21/2019 8: 28 PM EDT documented as of this encounter Plan of Treatment Not on file documented as of this encounter Visit Diagnoses Not on filedocumented in this encounter Care Teams Cementing Machine Operator Relationship Specialty Start Date End Date Karmen Kirby MD [address] [place] [address] PCP - General Pediatrics 06/29/23 11/13/23 documented as of this encounter
--- OUTSIDE RECORDS SUMMARY | 2024-11-10 17:46 | XMS_ITS | Clinical Summary ---
Author Organization [facility] Address [address] [place] [phone] Phone Care Team Providers Care Spot Remover Name Role Phone Unavailable Primary Care Provider Unavailabl e Allergies No known active allergies Medications albuterol (2.5 MG/3ML) 0.083% nebulizer solutionIndicati ons:Cough Take 3 mL (2.5 mg total) by nebulization every 4 (four) hours as needed for wheezing or shortness of breath. 1 Package 9 Active Additional Information Patient not taking.Reported on 11/10/2022 albuterol HFA 108 (90 Base) MCG/ACT inhalerIndicatio ns:Mild intermittent asthma without complication Inhale 2 puffs every 4 (four) hours as needed for wheezing or shortness of breath. 2 Units 1 Active Additional Information Patient not taking.Reported on 11/10/2022 loratadine 10 MG tabletIndication s:Seasonal allergic rhinitis due to pollen TAKE 1 TABLET BY MOUTH EVERY DAY 90 tablet 3 1 Active Multiple Vitamins-Mineral s (Mens Multi Vitamin & Mineral) tabletIndication s:Dietary counseling and surveillance Take 1 tablet by mouth daily. 90 tablet 3 2 Active [facility] Melatonin tabletIndication s:Sleep disturbance TAKE 1 TABLET BY MOUTH NIGHTLY 90 tablet 1 2 Active hydrOXYzine 50 MG tabletIndication s:Sleep disturbance,Intr insic atopic dermatitis Take 1 tablet (50 mg total) by mouth nightly as needed for itching. 90 tablet 3 3 Active triamcinolone 0.1 % ointmentIndicati ons:Intrinsic atopic dermatitis Apply topically 2 (two) times a day. Apply to inflamed skin areas twice daily for 2 weeks as needed 80 g 6 3 Active FLUoxetine 20 MG capsuleIndicatio ns:Depressed mood Take 1 capsule (20 mg total) by mouth daily. 90 capsule 3 Active traZODone 100 MG tabletIndication s:Sleep disturbance Take 1 tablet (100 mg total) by mouth nightly. 90 tablet 3 Active Active Problems Problem Noted Date Diagnosed Date Anxiety 10/06/2022 Elevated blood pressure read ing without diagnosis of hypertension 08/15/2022 Overview (08/15/2022): Corwin BP elevated today and last visit to 140+/90, worrisome for possible continued VELAZQUEZ. If remains elevated, refer to Dr Sarabia. Cocaine abuse 07/22/2022 Overview (11/11/2022): 05/02/22: EMS to [facility] ER for agitation, SI/HI with Utox + cocaine, admitted 10/04/22: David taken to [facility] 10/04 by police/EMS under Section 12 for OOC behavior during an altercation with his mother. Utox + cocaine only CBC, CMP WNL-ALT 29,started on Risperdal 2 mg and Divalproex 1000 mg QHS discharged 10/12 with home care services for DOT 11/10/22: Expressing desire/plan to quit drug use, declines PC+ assistance. Hoping to pursue [employer] program. Declines recommended Utox screen today. Assessment & Plan (11/11/2022 12:54 PM EDT): Expressing desire/plan to quit drug use, declines PC+ assistance. Hoping to pursue [employer] program. Declines recommended Utox screen today. Assessment & Plan (08/12/2022 2:38 PM EST): David agitated and angry today regarding neighbors who live in his building that he insists are trying to get him to use drugs and alcohol. Denies recent cocaine or other substance abuse but declines provider request for urine for drug screen today and BP has been usually elevated the last 2 visits. Discuss with [facility]AP. Cigarette smoker 07/22/2022 Overview (07/22/2022): Encouraged David to consider listening to music, exercising, reading all healthier ways to relax than smoking. Consider PC+ when cell phone replaced. Sleep disturbance 06/18/2021 Overview (07/22/2022): Trazodone 100 mg QHS, Melatonin 3 mg added 06/2021, on Trazodone 100 alone as of 07/2022 Assessment & Plan (11/11/2022 12:58 PM EDT): Using Trazodone more PRN now as sleeping better overall, but requesting full 90d refill today Assessment & Plan (08/12/2022 2:57 PM EST): David reports sleeping well with Hydroxyzine 50+ Trazodone 100- continue Assessment & Plan (07/22/2022 8:37 PM EST): Refilled unchanged Assessment & Plan (01/18/2022 4:15 PM EDT): Sleep meds working well until current eczema flare, continue Melatonin 3 mg OTC and Trazodone 100mg Assessment & Plan (06/18/2021 1:11 PM EST): Continue Trazodone 100 but add Melatonin 3 mg to quiet, dark,screen free bedtime routine, 30-60 min before bedtime BMI (body mass index), pedia tric, greater than or equal to 95% for age 0612/22/2019 Overview (12/30/2020): steady acceleration from normal BMI notetd starting at age 7 yrs, nl linear growth. 12/2020: 20 lb wt gain in past 12 mos, BMI 29.3=96%, TC 179H, HDL 45L, glucose 86, A1c 5.5%, ALT 39 Assessment & Plan (11/10/2022 12:27 PM EDT): Wt up 12 lbs to 193 today, but likely some Risperdal effect- no longer taking. Encouraged more exercise with friend Ryder. Assessment & Plan (01/13/2022 1:42 PM EDT): Sierra interval 10 lb weight loss with improved nutrition and activity- repeat yearly screening labs Assessment & Plan (06/18/2021 1:12 PM EST): Very impressive 7 lb weight loss with adoption of healthy habits since last visit- encouragement provided today for continued efforts. Assessment & Plan (03/17/2021 12:15 PM EDT): Continue efforts to reduce sugars, increased plants in diet and Encouraged 30 to 60 minutes daily/ regular physical activity. Assessment & Plan (12/30/2020 6:53 PM EDT): 20 pound annual weight gain noted today, current BMI at the 96th percentile equal to 29.3. Patient reporting recent attempts to drink more water, more plants and less sugar. Encouragement and support towards the school provided today. Psychosocial distress 12/22/2019 Overview (07/22/2022): 12/2019:Parental endorsement of potential/ near future housing insecurity today but reluctant to discuss, declines CC assist- follow Fall 2020: David now living with his mother in [place], who has medical issues 07/2022: Davids medical, social/emotinal and vocational needs not being met but his parents, but also developmentally unable to care for himself. [facility] team asked to enlist the help of additional care management services in the community or through his [facility] insurance. Assessment & Plan (11/11/2021 10:32 AM EDT): David still unhappy living with mother but father renting a single room himself, on long Section 8 wait list for housing assistance. Assessment & Plan (10/01/2021 1:22 PM EDT): David reports significant stress caring for his disabled mother , and has been truant for school for over 6 weeks by his own report. Request [facility] outreach to mother to further investigate needs/avialable supports. Depressed mood 12/22/2019 Overview (12/18/2022): 12/2019: Encouraged bed by 10 pm, daily walking x 30 min, 3 healthy meals. Start MVI+Clifford 3 02/2020 Sertraline trial very effective, but dosing inconsistent, changed to Fluoxetine 10 mg 09/2020 with wonderful improvement noted by ethel, final dose 20mg QD ( PHQ9 11 down to 1 by 02/2021). 06/2021: Began weekly CBT with Marina from [facility], and self d c/d Fluoxetine- so far so good on f/up 08/2021: Return of depressive symptoms and discharged from [facility] for NS, IBH eval with Sole x 1 09/30/2021: Resumed Fluoxetine 20, declines CBT, mood improved at 01/2022 [facility] but dropped out of HS 04/2022: Brief admit to [facility] for agitation with SI/HI with + cocaine use. 06/2022: David reporting good daily compliance with current Fluoxetine 20 and Trazodone for sleep, no changes desired. 05/02/22: EMS to [facility] ER for agitation, SI/HI with Utox + cocaine, admitted 10/04/22: [facility] by police/EMS under Section 12 for active SI following fight with mother. Utox + cocaine only CBC, CMP WNL-ALT 29,started on Risperdal 2 mg and Divalproex 1000 mg QHS discharged 10/12 with [facility] services for DOT. Initially improved but become non-compliant with meds following negative feedback form mother re: SE/somnolence 12/07/22-12/15/22: [facility] to [facility] for altercation with mother, SI, Utox negative, ALT, BS WNL, VPA level low. Stabilized on home regimen Risperdal 2 mg Divalproex ER 1000 mg QHS and Fluoxetine 20 mg QAM- Assessment & Plan (11/11/2022 12:57 PM EDT): Prefers to continue on Fluoxetine 20 but agrees to add consider adding back in the VPA-(was on Depakote ER 1000mg QHS) declines lower dose of Risperal for now. Plan levels in 2 weeks with second attempt at screening BMI labs - not able to be obtained today. If decides to resume, would start at 500mg QHS, increase in 3 days to 750mg and then in 3 days up to 1000mg and plan labs in 2 weeks. Will discuss plan with [facility] with [facility] permission. Assessment & Plan (08/12/2022 2:41 PM EST): Pt PHQ9 officialy WNL but reporting significant increased irritability> sadness, and requesting trial of increase Fluoxetine. Will add 10 mg to take with his current 20 mg tab to make total daily dose of 30 mg. Monitor for worseing mood symptoms, SSRI outreach call in 7-14 days. Discuss with [facility]. Assessment & Plan (07/22/2022 8:21 PM EST): David reporting good daily compliance with current Fluoxetine 20 and Trazodone for sleep with no changes desired. Plan ongoing f/up every 2 months. Assessment & Plan (04/14/2022 10:07 AM EDT): Stable mood and reporting compliance with daily Fluoxetine. NO dose changes indicated. F/up q 3 mos Assessment & Plan (01/18/2022 4:23 PM EDT): Pt with reported good compliance with his daily Fluoxetine 20 mg again for the past 3+ months with normal PHQ 9 score today, although has decided to drop out of high school. Declines CBT support but agrees to f/up with provider in 1 mo Assessment & Plan (11/11/2021 10:33 AM EDT): Mood improved, back at school regularly- continue Fluoxetine 20 mg daily and RTC in 1 month Assessment & Plan (10/01/2021 1:21 PM EDT): Significant return of depresssive symptoms following 06/2021 discontinuation of previously effective 20mg dose Fluoxetine. David denies SI and has good friend support at this time. Declines counseling support for now but expect this will change as his mood stabilizes. Suggest he take his Fluoxetine at night with his Trazadone and suggest a medication tray as well. Assessment & Plan (08/19/2021 10:42 AM EST): Resuming Fluoxetine at 20 mg QD, encouraged work with school of new bullying concern. David would like to talk to an in-person therapist - so will book here with HPA provider, follow closely. Assessment & Plan (07/28/2021 1:52 PM EST): Stopped Fluoxetine several weeks ago and mood holding steady so far. Encouraged David to continue with his weekly CBT with Marina from [facility] and reach back out if he begins to experience increase in depressive symptoms. Assessment & Plan (06/18/2021 1:09 PM EST): Continue with new weekly CBT weekly, increase Fluoxetine to 20 mg QD, and add Melatonin 3 mg QHS to help reduce sleep loss due to latency. Encourage continued healthy diet and exercise, mindfullness meditation practice. Assessment & Plan (03/17/2021 12:13 PM EDT): PHQ-9 of 1 today improved from score of 11 back in September of this year, will Continue Fluoxetine 10 mg QAM for the next 6-12 months, plan med f/ups q 4 months or sooner PRN Assessment & Plan (12/30/2020 6:31 PM EDT): Patient has been taking fluoxetine 10 mg several times a week mood overall improved. options discussed today and patient prefers attempted daily administration instead of full discontinuation. Discussed using a cell phone alarm or sticking note on bathroom mirror to help improve consistency/ compliance. Assessment & Plan (09/17/2020 2:47 PM EST): Change to Fluoxetine 10 mg x 2 weeks, then up to 20mg if tolerated. Add Trazodone 50 mg at bedtime to help get sleep settled down. Assessment & Plan (03/19/2020 5:03 PM EDT): Mood dramatically improved on Sertraline 25 mg- hold dose and continue school based counseling support, hold off on [facility] support for now. Assessment & Plan (02/20/2020 5:02 PM EDT): Begin trial Sertraline at 12.5 mg x 1 week, then up to 25 mg x 3 weeks, refer to IB team Vision problem 12/20/2019 Overview (12/20/2019): 2018: Noted on [facility] screening- Assessment & Plan (01/18/2022 4:35 PM EDT): Overdue for routine annual eye exam with vision impaired with current old eyeglass rx today. Father encouraged to help get David booked with his optometry provider this summer. Assessment & Plan (12/30/2020 6:37 PM EDT): Wearing glasses today but vision should not quite 20/20. Encouraged every 12- month eye exams Assessment & Plan (12/22/2019 11:01 AM EDT): Good compliance with glasses Chronic seasonal allergic rhinitis 04/05/2018 Overview (12/30/2020): historically takes loratadine 10 mg seasonally, mostly spring and fall. 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 Dropped out 2021. 03/2022: [employer] info provided by [facility] 06/2022: David still not registered with DDS despite [facility] involvement x 2 years, Pt in need of significant supports. Cherri Contreras to meet with David and father today to make plan for assisted completion of DDS paperwork and close supervision. David still declines provider request for permission to talk with his mother. Will continue to address. 07/2022: DDS application in progress with [facility] assist. Will need guardianship eval by Dr Serrato to accompany application Assessment & Plan (11/11/2022 12:50 PM EDT): [facility] /attendant lodging facilities assisting David with DDS application. Will send official HPA document to his address to complete his paperwork requirements. Assessment & Plan (08/12/2022 2:39 PM EST): DDS application just started today by dad with [facility]/Cherri hernandez. Will need guardianship eval by Dr Serrato to accompany application, but question parental ability to provide proper support for David. Referral placed today. Assessment & Plan (07/22/2022 8:19 PM EST): David still not registered with DDS despite [facility] involvement x 2 years, Pt in need of significant supports. Cherri Contreras to meet with David and father today to make plan for assisted completion of DDS paperwork and close supervision. David still declines provider request for permission to talk with his mother. Will continue to address. Assessment & Plan (04/14/2022 10:08 AM EDT): [facility] in to provide [employer] information to David/dad, and check for status of DDS application Assessment & Plan (01/18/2022 4:09 PM EDT): [place] to assist David/parents with DDS application. Pt will need formal [facility] eval with Dr Thomas to determine current Independent life skill/proficiency level, need for guardianship, although David is a vocal self-advocate. Assessment & Plan (10/01/2021 1:35 PM EDT): David struggling with reported bullying at [employer] school. SHERIE/permission to discuss current school situation with his school counselor requested. Would also appreciate [facility] explore issue of legal guardianship for David with his mom. Atopic dermatitis 11/25/2009 Overview (07/22/2022): Historically mild-moderate but with worsening 2020. Using Cera-Ve or Aquaphor with Triamcinolone 0.1% BID , up to 0.5% cream for more severe flares, but with irregular compliance. 07/2022:Severely flared eczema affecting trunk and all 4 extrems with no emollient or steroid creams in the past 3-4 weeks despite available refills at his [facility] pharmacy. Father to obtain Aquaphor or Vaseline at pharmacy today for QID application along with 0.5% Triamcinolone BID and will treat with oral steroids on a slow taper. Hydroxyzene 50mg QHS to help with sleep. Assessment & Plan (11/11/2022 12:49 PM EDT): Eczema much improved today but still with mild dryness and superficial excoriations in antecubital areas, unaware refills were available for his topical steroid, encouraged to call for refill and use Vaseline if needed for emollient. Assessment & Plan (08/11/2022 10:07 AM EST): Improved atopic derm with Pred but needs to begin taper- Start 1 tab daily for 7 days, then 1/2 tab daily for 7 days then off. Needs to begin Vaseline to skin 3x daily and change to Triamcinolone ointment 0.1% for BID use. Father to call [facility] for appointment. RTC 1 mo Assessment & Plan (07/22/2022 8:30 PM EST): Severely flared eczema affecting trunk and all 4 extrems with no emollient or steroid creams in the past 3-4 weeks despite available refills at his [facility] pharmacy. Father to obtain Aquaphor or Vaseline at pharmacy today for QID application along with 0.5% Triamcinolone BID and will also treat with oral steroids on a slow taper. Hydroxyzene 50mg QHS to help with sleep. Refer to [facility] for formal eval, possible allergy testing and to assume management. Assessment & Plan (04/14/2022 10:11 AM EDT): Under controlled with poor compliance with prescribed regimen. Reviewed use of 0.25% Tcream +Emollient=BID-TID fluff and T ointment for targeted BID use for flared areas. Discouraged BID hot showers. Assessment & Plan (01/18/2022 4:26 PM EDT): Current significant exacerbation, worsened as compared to his 10/2021 exam. Attempted RX for Aquaphor to use as TID emollient and 0.1% Triamcinolone as targeted steroid therapy for flexural symptoms.Hydroxyzene 25-50 mg QHS for now to help with pruritis and sleep. RTC in 2-4 weeks Assessment & Plan (11/12/2021 8:03 PM EDT): Still with sig flare- steroid creams confirmed at [facility] and father agrees to roll picker today, area that emollient needs to be purchased OTC, store brand vaseline or aquaphor recommended Assessment & Plan (10/01/2021 1:25 PM EDT): Remined David to use Fluff (80g T 0.025% cream + jar of emollient cream) 2 x daily, especially after shower, and to avoid bath soaps with colors or fragrance, Marilia recommended. Separate Triamcinolone 0.1% ointment refilled for targeted/ brief use to treat flared areas. Assessment & Plan (08/19/2021 10:29 AM EST): Encouraged BID use of triamcinolone x 2 weeks Assessment & Plan (07/28/2021 1:54 PM EST): Flared up on hands and back of knees- Reviewed recommendations for frequent application of emollient such as acidophil or CeraVe and refilled patient's triamcinolone cream for twice daily use Assessment & Plan (03/17/2021 12:14 PM EDT): Much improved with daily emollient therapy, but suggest increasing to twice or 3 times daily application, with 2.5% hydrocortisone ointment for use at the first sign of inflammation. Assessment & Plan (12/30/2020 6:33 PM EDT): very significant inflammatory lesions across neck shoulders and antecubital fossa today. Patient with no regular emollient or topical steroid use. Importance of use of gentle hypoallergenic skin products, coupled with frequent applications of emollient and topical steroids twice daily for current flare reviewed. Assessment & Plan (09/17/2020 2:48 PM EST): Badly flared on hands especially refilled Triamcinolone- switch back to Dove and clear detergent. Moisture cream 3-4 x day. Assessment & Plan (12/22/2019 11:00 AM EDT): Mild dryness with excoriations noted on BUE today- recommend daily emollient use with 2.5% HC PRN Resolved Problems Problem Noted Date Diagnosed Date Resolved Date Counseling and coordination of care 03/19/2020 06/27/2023 Overview (10/16/2022): 03/2020 RN CC /KT introduction to father/David. Pt on SSI but not DDS- father was provided information and encouragement. Ayala 2020, 2021, 2022 Assessment & Plan (11/11/2022 1:00 PM EDT): DDS application now being prepared with assist from [facility]/attendant lodging facilities. Appreciate [facility] assist with Pt1s and pt requesting assistance with application for [employer] program, but David aware recent drug use may require a clean period . Assessment & Plan (01/18/2022 4:33 PM EDT): Appreciate [facility] team engagement with father today and provision of another DDS packet but as family has found this a barrier step for the past 3 years I am hoping that some additional elbow support can be leveraged in order to ensure forward progress. David lives with his disable mother, so involving her would likely be helpful but currently no teen release on file to allow communication with her, only with father.Plan to obtain the next time David is in clinic. Assessment & Plan (11/12/2021 8:02 PM EDT): [facility] team to reach back out to explore status of DDS process and other possible supported living arrangements for David Acne vulgaris 12/22/2019 12/30/2020 Overview (02/20/2020): Minimal improvement with 5% NATHALY QD, increase to BID and add retinoid QHS. Change from old spice to dove or Neutrogena daily face soap Assessment & Plan (03/19/2020 6:07 PM EDT): Add topical Clinda 1% BID following the 5% BP, continue retinoid. Mild intermittent asthma without complication 09/21/19 18 01/18/2022 Overview (12/30/2020): H/o Singulair, doing well with albuterol PRN until 2019, none used for years reported at 2020 [facility] Assessment & Plan (01/18/2022 4:10 PM EDT): David denies recent albuterol need or use. Assessment & Plan (12/22/2019 10:58 AM EDT): ACT 23 today BUT pt endorsing that his physical activity is limited by his asthma sx. Plan premedication with 2 puffs albuterol but if not helpful consider return to Montelukast or trial Flovent. No refill needed today RTC 1 mo for f/up with spirometry Behavior problem in child 11/25/2009 Overview (03/18/2020): Pt reports chronic difficulty with anger, struggles with emotional regulation Assessment & Plan (12/22/2019 11:01 AM EDT): Pt self report of problematic sadness and anger, with abnormal PHQ9 today. Pt with recent self-injury of punching a wall, but denies SI/ intent or plan. Refer to IBH team for formal evaluation and consider SSRI. Immunizations Immunization Administration Dates Next Due COVID-19 daryn Qureshi, 12+ years 09/30/2021 DTaP 5 12/04/2007, 5,2003,10/27,2003 H1N1 08/12/2009,07/09/2009 HPV Vaccine 9 Valent 04/06/2016,08/11/2015 Hep A, ped/adol 05/06/2014,12/09/2010 Hep B, ped/adol 09/22/2017,04/07/2004,2003 Hib (HbOC) 11/30/2004 Hib (PRP-T) 04/07/2004,2003,2003 IPV 12/04/2007, 4,2003,08/29 Influenza Split 08/01/2012,03/11/2010 Influenza, injectable, quadrivalent 08/11/2015 Influenza, injectable, quadr ivalent, preservative free 03/16/2021,03/19/2020,06/06/2019,09/21,09/22/2017,04/06/2016,05/04/2013 Influenza, injectable, trivalent 04/22/2014,07/19,07/09/2009 MMR 12/04/2007,06/29/2004 Meningococcal Conj (Menactra) MCV4P 12/21/2019,0 08/11/2015 Pneumococcal Conjugate 11/30/2004,2003,2003,08/29 Tdap 07/23/2021,08/11/2015 Varicella 12/04/2007,06/29/2004 Family History Medical History Relation Name Comments No Known Problems Father Diane Asthma Mother Mary Jo Bipolar disorder Mother Mary Jo Depression Mother Mary Jo Diabetes Mother Mary Jo Lupus Mother Mary Jo Thyroid cancer Mother Mary Jo Relation Name Status Comments Brother Brother: Trisom y 18 Father Diane Alive Father: Alive a nd well Half-Sister 1 Millicent Alive Half sister (M ): Alive and well, Alive and well Half-Sister 2 Diane Alive Mother Mary Jo Mother: Diabete s mellitus, Depression, Lupus erythematosus, Asthma, Hepatitis C, Cancer -thyroid Social History Tobacco Use Types Packs/Day Years Used Date Smoking Tobacco: Never Smokeless Tobacco: Never Tobacco Cessation:Counseling Given: Yes Comments:Never smoker Alcohol Use Standard Drinks/Week Comments [...] Orientation Straight 12/21/2019 8: 28 PM EDT Last Filed Vital Signs Vital Sign Reading Time Taken Comments Blood Pressure 137/85 11/10/2022 10:33 AM EDT Pulse 92 11/10/2022 10:33 AM EDT Temperature 35.9 ??C (96.6 ??F) 08/11/2022 9:18 AM ES T Respiratory Rate 18 06/06/2019 1:38 PM EST Oxygen Saturation 97% 04/02/2013 12:00 AM EDT Inhaled Oxygen Concentration - - Weight 87.6 kg (193 lb 2 oz) 11/10/2022 10:33 AM EDT Height 167.6 cm (5' 6 ) 07/21/2022 8:34 AM EST Body Mass Index 31.17 07/21/2022 8:34 AM EST Plan of Treatment Health Maintenance Due Date Last Done Comments Men B Vaccine (1 of 2 - Standard) 2019 Influenza Vaccines (#1) 2024 03/16/20, 03/19/2020, 06/06/2019, Additional history exists COVID-19 Vaccine (2023-2 5 season) 2024 09/30/2021, 04/06/2021, 03/16/2021 DTaP,Tdap,and Td Vaccines (8 - Td or Tdap) 07/23/2031 07/23/2021, 08/11/2015, 12/04/2007, Additional history exists HIB Vaccines Completed 11/30/2004, 03/19, 2003, Additional history exists Pneumococcal Vaccine Completed 11/30/2004, 04/07/2004, 2003, Additional history exists IPV Vaccines Completed 12/04/2007, 03/2004, 2003, Additional history exists MMR Vaccines Completed 12/04/2007, 06/29/2004 Varicella Vaccines Completed 12/04/2007, 06/29/2004 Hepatitis A Vaccines Completed 05/06/2014, 12/10/19 11 HPV Vaccines Completed 04/06/2016, 08/11/2015 Hepatitis B Vaccines Completed 09/22/2017, 04/07/2004, 2003 Meningococcal Vaccine Completed 12/21/2019, [address] [place] [address] NON PCC [facility]
--- OUTSIDE RECORDS SUMMARY | 2024-11-10 17:46 | XMS_ITS | Clinical Summary ---
Author Organization [facility] Address [address] [place] [address] Phone Care Team Providers Care Global Sales Director Name Role Phone Ting Mike Primary Care Provider [phone] Allergies No known active allergies Medications Ventolin HFA 90 mcg/actuation inhaler Inhale 2 puffs by mouth every 4 (four) hours if needed for wheezing or shortness of breath. Active loratadine (CLARITIN) 10 mg tablet Take 1 tablet (10 mg total) by mouth 1 (one) time each day. for allergies Active oxyCODONE (ROXICODONE) 5 mg immediate release tablet Take 1 tablet (5 mg total) by mouth every 4 (four) hours if needed for severe pain. Max Daily Amount: 30 mg 8 tablet 10/14/19 25 Active docusate sodium (COLACE) 100 mg capsule Take 1 capsule (100 mg total) by mouth 2 (two) times a day. 8 each 10/14/19 25 Active doxycycline (MONODOX) 100 mg capsule Take 1 capsule (100 mg total) by mouth 2 (two) times a day for 7 days. Take with at least 8 ounces (large glass) of water, do not lie down for 30 minutes after. Administer 2 hours before or after multivitamins, antacids, or other products containing polyvalent cations (i.e., calcium, iron, magnesium, selenium, zinc). 13 capsule 10/13/19 25 025 Discontinued ibuprofen (ADVIL,MOTRIN ) 600 mg tablet Take 1 tablet (600 mg total) by mouth every 6 (six) hours if needed for mild pain, moderate pain or fever - temperature GREATER than 38 C (100.4 F) (for pain) for up to 7 days. 28 tablet 10/12/19 25 025 Discontinued acetaminophen (TYLENOL) 325 mg tablet Take 2 tablets (650 mg total) by mouth every 6 (six) hours if needed for mild pain, moderate pain or fever - temperature GREATER than 38 C (100.4 F) for up to 7 days. 56 tablet 10/12/19 25 025 Discontinued(St op Taking at Discharge) triamcinolone (KENALOG) 0.1 % cream Apply 1 Application topically 2 (two) times a day. 08/09/19 25 025 Discontinued(St op Taking at Discharge) doxycycline (MONODOX) 100 mg capsule Take 1 capsule (100 mg total) by mouth 2 (two) times a day for 10 days. Take with at least 8 ounces (large glass) of water, do not lie down for 30 minutes after. Administer 2 hours before or after multivitamins, antacids, or other products containing polyvalent cations (i.e., calcium, iron, magnesium, selenium, zinc). 20 each 10/14/19 25 025 acetaminophen (TYLENOL) 500 mg tablet Take 2 tablets (1,000 mg total) by mouth every 8 (eight) hours for 10 days. 60 each 10/14/19 25 025 ibuprofen (ADVIL,MOTRIN ) 600 mg tablet Take 1 tablet (600 mg total) by mouth every 6 (six) hours if needed for mild pain, moderate pain or fever - temperature GREATER than 38 C (100.4 F) (for pain) for up to 7 days. 28 tablet 10/14/19 25 025 Active Problems Problem Noted Date Diagnosed Date SIRS (systemic inflammatory response syndrome) ([facility] V24, [facility] V28) 10/11/2024 Cellulitis of back except buttock 10/11/2024 Asthma 10/11/2024 Insect bite of lower back, initial encounter Abscess of back 10/11/2024 Anxiety 10/06/2022 Atopic dermatitis 11/25/2009 Overview (10/11/2024): Outside Source Comment: Overview: Historically mild-moderate but with worsening 2020. Using Cera- Ve or Aquaphor with Triamcinolone 0.1% BID , up to 0.5% cream for more severe flares, but with irregular compliance. 07/2022:Severely flared eczema affecting trunk and all 4 extrems with no emollient or steroid creams in the past 3-4 weeks despite available refills at his [facility] pharmacy. Father to obtain Aquaphor or Vaseline at pharmacy today for QID application along with 0.5% Triamcinolone BID and will treat with oral steroids on a slow taper. Hydroxyzene 50mg QHS to help with sleep. Last Assessment & Plan: Eczema much improved today but still with mild dryness and superficial excoriations in antecubital areas, unaware refills were available for his topical steroid, encouraged to call for refill and use Vaseline if needed for emollient. 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 Dropped out 2021. 03/2022: [employer] info provided by [facility] 06/2022: David still not registered with DDS despite [facility] involvement x 2 years, Pt in need of significant supports. Cherri Contreras to meet with David and father today to make plan for assisted completion of DDS paperwork and close supervision. David still declines provider request for permission to talk with his mother. Will continue to address. 07/2022: DDS application in progress with [facility] assist. Will need guardianship eval by Dr Serrato to accompany application Last Assessment & Plan: [facility] /manager of business assisting David with DDS application. Will send official HPA document to his address to complete his paperwork requirements. Encounters Date Type Department Care Team Description 10/31/2024 Telephone Bariatric Surgery - [place] [address] [facility] [address] [place] [address] Rocio Harper MD Advice Only (Call from [facility]) 10/19/2024 Telephone Bariatric Surgery [facility] [address] [phone] Rocio Harper MD Advice Only (Call from [facility]) 10/18/2024 11:45 AM EDT Office Visit Bariatric Surgery [facility] [address] [phone] Rocio Harper MD Hx of abscess of skin and subcutaneous tissue (Primary Dx) 10/12/2024 11:32 AM EDT Anesthesia Event [facility] [place] [address] [place] [phone] Diogenes Boateng MD Chang, Ling, CRNA 10/12/2024 11:00 AM EDT - 10/12/2024 12:30 PM EDT Surgery [facility] OR [address] [place] [phone] Rocio Harper MD I & D LOWER BACK ABSCESS 10/11/2024 9:52 PM EDT - 10/14/2024 11:33 AM EDT Hospital Encounter [facility] [address] [place] [address] Gurvinder Page MD Maduakor, Emmanuel C, MD Japaridze, Anna, MD Surendran, Anupama, MD Insect bite of lower back, initial encounter (Primary Dx); Cellulitis of back except buttock; SIRS (systemic inflammatory response syndrome) (CMS/HCC V24, CMS/HCC V28); Abscess of back Discharge Disposition: Home-Health Care Svc from Last 3 Months Medical History Medical History Date Comments Asthma Social History Tobacco Use Types Packs/Day Years Used Date Smoking Tobacco: Former Cigarettes Q uit: 08/18/2024 Smokeless Tobacco: Never Alcohol Use Standard Drinks/Week Comments Not Currently 0 (1 standard drink = 0.6 oz pur e alcohol) Interpersonal Safety Answer Date Record ed Physical Abuse 10/12/2024 Verbal Abuse 10/12/2024 Sex and Gender Information Value Date Recorded Sex Assigned at Male 10/11/2024 10:40 PM EDT Legal Sex Male 8:45 PM EST Gender Identity Male 10/11/2024 10:40 PM EDT Sexual Orientation Straight 10/11/2024 10 :40 PM EDT Obstetrics History Last Filed Vital Signs Vital Sign Reading Time Taken Comments Blood Pressure 130/83 10/18/2024 11:47 AM EDT Pulse 87 10/18/2024 11:47 AM EDT Temperature 36.5 ??C (97.7 ??F) 10/14/2024 7:37 AM ED T Respiratory Rate 18 10/14/2024 7:37 AM EDT Oxygen Saturation 99% 10/14/2024 7:37 AM EDT Inhaled Oxygen Concentration - - Weight 79.5 kg (175 lb 3.2 oz) 10/18/2024 11:47 AM EDT Height 170.2 cm (5' 7 ) 10/18/2024 11:47 AM EDT Body Mass Index 27.44 10/18/2024 11:47 AM EDT Plan of Treatment Health Maintenance Due Date Last Done Comments Pneumococcal Vaccine: Pediatrics (0 to 5 Years) and At-Risk Patients (6 to 64 Years) (1 of 1 - PPSV23) 2009 11/30/2004, 04/07/2004, 2003, Additional history exists Meningococcal B Vaccine (1 of 2 - Standard) 2019 Annual Well Child Visit (3-21 years old) 08/12/2023 01/13/2022, 12/29/2020, 12/21/2019, Additional history exists Cholesterol Screening (Lipid Panel) 08/12/2023 Depression Screening 08/12/2023 HIV Screening 08/12/2023 Hepatitis C Screening 08/12/2023 Social Influencers of Health Screening 08/12/2023 COVID-19 Vaccine ( season) 2024 09/30/2021, 04/06/2021, 03/16/2021 Influenza Vaccine (Season Ended) 2025 03/16/2021, 03/19/2020, 06/06/2019, Additional history exists DTaP,Tdap,and Td Vaccines (8 - Td or Tdap) 07/23/2031 07/23/2021, 08/11/2015, 12/04/2007, Additional history exists HIB Vaccines Completed 11/30/2004, 03/19, 2003, Additional history exists IPV Vaccines Completed 12/04/2007, 060 03/2004, 2003, Additional history exists MMR Vaccines Completed 12/04/2007, 06/29/2004 Varicella Vaccines Completed 12/04/2007, 06/29/2004 Hepatitis A Vaccines Completed 05/06/2014, 12/10/19 11 HPV Vaccines Completed 04/06/2016, 08/11/2015 Hepatitis B Vaccines Completed 09/22/2017, 04/07/2004, 2003 Meningococcal ACWY Vaccine Completed 12/21/2019, RSV Immunization Patients Under 20 months Aged Out No longer eligible based on patient's age to complete this topic Procedures Procedure Name Priority Date/Time Associated Diagnosis Comments ECG ANNOTATED 10/15/2024 CBC WITH AUTO DIFFERENTIAL Routine 10/13/2024 6:44 AM EDT MAGNESIUM Routine 10/13/2024 6:44 AM EDT BASIC METABOLIC PANEL Routine 10/13/2024 6:44 AM EDT CBC AND DIFFERENTIAL Routine 10/13/2024 6:44 AM EDT CULTURE TISSUE WITH GRAM STAIN Routine 10/12/2024 12:08 PM EDT Abscess of back INCISION DRAINAGE ABSCESS 10/12/2024 11:32 AM EDT Abscess of back LACTATE Routine 10/12/2024 6:35 AM EDT COMPLETE BLOOD COUNT Routine 10/12/2024 6:35 AM EDT BASIC METABOLIC PANEL Routine 10/12/2024 6:35 AM EDT MRSA PCR Routine 10/12/2024 4:00 AM EDT US EXTREMITY NONVASCULAR LIMITED LEFT STAT 10/12/2024 2:18 AM EDT LACTATE, WITH REFLEX Timed 10/12/2024 1:24 AM EDT DRUG ABUSE SCREEN 8A PANEL, URINE Routine 10/12/2024 12:03 AM EDT LACTATE, WITH REFLEX STAT 10/11/2024 10:33 PM EDT CULTURE BLOOD STAT 10/11/2024 10:33 PM EDT CULTURE BLOOD STAT 10/11/2024 10:33 PM EDT CBC WITH AUTO DIFFERENTIAL STAT 10/11/2024 10:01 PM EDT CBC AND DIFFERENTIAL STAT 10/11/2024 10:01 PM EDT COMPREHENSIVE METABOLIC PANEL STAT 10/11/2024 10:01 PM EDT ECG 12-LEAD STAT 10/11/2024 9:49 PM EDT from Last 3 Months Results * ECG-Annotated (10/15/2024) us Provider Onbase MD ECG ORDERABLES Final Result * (ABNORMAL) CBC auto differential (10/13/2024 6:44 AM EDT) Only the most recent of2 resultswithin the time period is included. WBC 10.6 4.8 - 10.8 K/mcL LAB HEMETOLOGY METHOD 10/13/2024 7:[address] [facility] RBC 4.50 4.50 - 5.50 M/mcL LAB HEMETOLOGY METHOD 10/13/2024 7:[address] [facility] Hemoglobin 13.6 13.5 - 17.5 g/dL LAB HEMETOLOGY METHOD 10/13/2024 7:[address] [facility] Hematocrit 40.9(L) 42.0 - 54.0 % LAB HEMETOLOGY METHOD 10/13/2024 7:38 AM [facility] MCV 91.9 79.0 - 98.0 FL LAB HEMETOLOGY METHOD 10/13/2024 7:38 AM [facility] MCH 30.6 27.0 - 32.0 pcg LAB HEMETOLOGY METHOD 10/13/2024 7:38 AM [facility] MCHC 33.3 32.0 - 37.0 g/dL LAB HEMETOLOGY METHOD 10/13/2024 7:38 AM [facility] RDW 11.9 11.0 - 15.0 % LAB HEMETOLOGY METHOD 10/13/2024 7:38 AM [facility] Platelets 208 130 - 400 K/mcL LAB HEMETOLOGY METHOD 10/13/2024 7:38 AM [facility] MPV 10.1 7.0 - 11.0 FL LAB HEMETOLOGY METHOD 10/13/2024 7:38 AM [facility] NRBC 0.0 <1.0 % LAB HEMETOLOGY METHOD 10/13/2024 7:38 AM [facility] NRBC Absolute 0.00 <0.10 K/mcL LAB HEMETOLOGY METHOD 10/13/2024 7:38 AM [facility] Neutrophils Relative 65.7 % LAB HEMETOLOGY METHOD 10/13/2024 7:38 AM [facility] Lymphocytes Relative 19.9 % LAB HEMETOLOGY METHOD 10/13/2024 7:38 AM [facility] Monocytes Relative 9.3 % LAB HEMETOLOGY METHOD 10/13/2024 7:38 AM [facility] Eosinophils Relative 4.3 % LAB HEMETOLOGY METHOD 10/13/2024 7:[address] [facility] Basophils Relative 0.4 % LAB HEMETOLOGY METHOD 10/13/2024 7:[address] [facility] Immature Granulocytes Relative 0.4 % LAB HEMETOLOGY METHOD 10/13/2024 7:[address] [facility] Neutrophils Absolute 6.95 1.50 - 7.00 K/mcL LAB HEMETOLOGY METHOD 10/13/2024 7:[address] [facility] Lymphocytes Absolute 2.11 1.00 - 5.00 K/mcL LAB HEMETOLOGY METHOD 10/13/2024 7:[address] [facility] Monocytes Absolute 0.99 0.20 - 1.00 K/mcL LAB HEMETOLOGY METHOD 10/13/2024 7:[address] [facility] Eosinophils Absolute 0.46 0.00 - 0.50 K/mcL LAB HEMETOLOGY METHOD 10/13/2024 7:[address] [facility] Basophils Absolute 0.04 0.00 - 0.20 K/mcL LAB HEMETOLOGY METHOD 10/13/2024 7:[address] [facility] Immature Granulocytes Absolute 0.04(H) 0.00 - 0.03 K/mcL LAB HEMETOLOGY METHOD 10/13/2024 7:[address] [facility] Blood Venous blood specimen / Unknown Venipuncture / Unknown 10/13/2024 6:44 AM EDT 10/13/2024 7:03 AM EDT us Meliza Nowak NP LAB BLOOD ORDERABLES Final Resul t [facility] [address] [place] [address], * Magnesium (10/13/2024 6:44 AM EDT) Magnesium 2.0 1.9 - 2.6 mg/dL LAB CHEMISTRY METHOD 10/13/2024 8:06 AM [facility] Blood Venous blood specimen / Unknown Venipuncture / Unknown 10/13/2024 6:44 AM EDT 10/13/2024 7:02 AM EDT us Meliza Nowak NP LAB BLOOD ORDERABLES Final Resul t [facility] [address] [place] [address], [place] [phone] * (ABNORMAL) Basic metabolic panel (10/13/2024 6:44 AM EDT) Only the most recent of2 resultswithin the time period is included. Sodium 139 133 - 145 mmol/L LAB CHEMISTRY METHOD 10/13/2024 8:06 AM [facility] Potassium 3.9 3.5 - 5.5 mmol/L LAB CHEMISTRY METHOD 10/13/2024 8:06 AM [facility] Chloride 104 96 - 110 mmol/L LAB CHEMISTRY METHOD 10/13/2024 8:06 AM [facility] CO2 31 21 - 32 mmol/L LAB CHEMISTRY METHOD 10/13/2024 8:06 AM [facility] Anion Gap 4 3 - 11 LAB CHEMISTRY METHOD 10/13/2024 8:06 AM [facility] Glucose 89 70 - 100 mg/dL LAB CHEMISTRY METHOD 10/13/2024 8:06 AM [facility] BUN 5 5 - 25 mg/dL LAB CHEMISTRY METHOD 10/13/2024 8:06 AM [facility] Creatinine 0.68(L) 0.70 - 1.30 mg/dL LAB CHEMISTRY METHOD 10/13/2024 8:06 AM [facility] eGFR 136 >=60 mL/min/1. 73m2 LAB CHEMISTRY METHOD 10/13/2024 8:[address] [facility] Comment:Calculation based on the??Chronic Kidney Disease Epidemiology Collaboration (CKD-EPI) equation refit??without adjustment for race. BUN/Creatinine Ratio 7.4 LAB CHEMISTRY METHOD 10/13/2024 8:[address] [facility] Calcium 9.5 8.5 - 10.5 mg/dL LAB CHEMISTRY METHOD 10/13/2024 8:[address] [facility] Blood Venous blood specimen / Unknown Venipuncture / Unknown 10/13/2024 6:44 AM EDT 10/13/2024 7:02 AM EDT us Meliza Nowak HOME DAY CARE PROVIDER LAB BLOOD ORDERABLES Final Resul t [facility] [address] [place] [address], [place] [phone] * (ABNORMAL) Culture tissue with gram stain (10/12/2024 12:08 PM EDT) Culture, Tissue No Anaerobes isolated at 5 days. 10/17/2024 7:39 AM [facility] Culture, Tissue Methicillin-Resistan t Staphylococcus aureus(A) FIDEL 10/17/2024 7:[address] [facility] Comment: Positive for PBP2a - indicative of MRSA The organism value for this result has been updated. These results have been appended to the previously preliminary verified report. Gram Stain Result Few Gram positive cocci in clusters(A) 10/17/2024 7:[address] [facility] Gram Stain Result Moderate Polymorphonuclear leukocytes(A) 10/17/2024 7:39 AM [facility] Gram Stain Result No epithelial cells seen(A) 10/17/2024 7:[address] [facility] Tissue Lower back structure / Unknown 10/12/2024 12:08 PM EDT 10/12/2024 12:22 PM EDT Narrative Organism Antibiotic Method Susceptibility Methicillin-Resistant Staphylococcus aureus Benzylpenicillin FIDEL >=0.5 ug/ml: Resistant Methicillin-Resistant Staphylococcus aureus Oxacillin FIDEL >=4 ug/ml: Resistant Methicillin-Resistant Staphylococcus aureus Gentamicin FIDEL <=0.5 ug/ml: Susceptible Methicillin-Resistant Staphylococcus aureus Ciprofloxacin FIDEL <=0.5 ug/ml: Susceptible Methicillin-Resistant Staphylococcus aureus Levofloxacin FIDEL 0.25 ug/ml: Susceptible Methicillin-Resistant Staphylococcus aureus Erythromycin FIDEL >=8 ug/ml: Resistant Methicillin-Resistant Staphylococcus aureus Clindamycin FIDEL <=0.25 ug/ml: Susceptible Methicillin-Resistant Staphylococcus aureus Linezolid FIDEL 2 ug/ml: Susceptible Methicillin-Resistant Staphylococcus aureus Vancomycin FIDEL <=0.5 ug/ml: Susceptible Methicillin-Resistant Staphylococcus aureus Tetracycline FIDEL <=1 ug/ml: Susceptible Methicillin-Resistant Staphylococcus aureus Rifampin FIDEL <=0.5 ug/ml: Susceptible Methicillin-Resistant Staphylococcus aureus Trimethoprim/Sulfamethoxazo le FIDEL <=10 ug/ml: Susceptible Rocio Harper MD LAB MICROBIOLOGY - [facility] ORDERABLES Final Result [facility] [address] [place] [address], * (ABNORMAL) Complete blood count (10/12/2024 6:35 AM EDT) WBC 15.5(H) 4.8 - 10.8 K/mcL LAB HEMETOLOGY METHOD 10/12/2024 7:[address] [facility] RBC 4.60 4.50 - 5.50 M/mcL LAB HEMETOLOGY METHOD 10/12/2024 7:[address] [facility] Hemoglobin 14.2 13.5 - 17.5 g/dL LAB HEMETOLOGY METHOD 10/12/2024 7:[address] [facility] Hematocrit 41.9(L) 42.0 - 54.0 % LAB HEMETOLOGY METHOD 10/12/2024 7:[address] [facility] MCV 91.1 79.0 - 98.0 FL LAB HEMETOLOGY METHOD 10/12/2024 7:[address] [facility] MCH 30.9 27.0 - 32.0 pcg LAB HEMETOLOGY METHOD 10/12/2024 7:[address] [facility] MCHC 33.9 32.0 - 37.0 g/dL LAB HEMETOLOGY METHOD 10/12/2024 7:[address] [facility] RDW 12.0 11.0 - 15.0 % LAB HEMETOLOGY METHOD 10/12/2024 7:[address] [facility] Platelets 200 130 - 400 K/mcL LAB HEMETOLOGY METHOD 10/12/2024 7:[address] [facility] MPV 10.0 7.0 - 11.0 FL LAB HEMETOLOGY METHOD 10/12/2024 7:[address] [facility] NRBC 0.0 <1.0 % LAB HEMETOLOGY METHOD 10/12/2024 7:[address] [facility] NRBC Absolute 0.00 <0.10 K/mcL LAB HEMETOLOGY METHOD 10/12/2024 7:[address] [facility] Blood Venous blood specimen / Unknown Venipuncture / Unknown 10/12/2024 6:35 AM EDT 10/12/2024 7:03 AM EDT us Laura MOSES LAB BLOOD ORDERABLES Final Re sult [facility] [address] [place] [address], * Lactate (10/12/2024 6:35 AM EDT) Lactate 1.2 0.4 - 2.0 mmol/L LAB CHEMISTRY METHOD 10/12/2024 7:[address] [facility] Blood Venous blood specimen / Unknown Venipuncture / Unknown 10/12/2024 6:35 AM EDT 10/12/2024 7:38 AM EDT Miguel MOSES LAB BLOOD ORDERABLES Final Res ult Performing Organization Address [facility]/ZIP Co de Phone Number [facility] [address] [place] [address], [place] [phone] * (ABNORMAL) MRSA molecular study (10/12/2024 4:00 AM EDT) MRSA Screen PCR Detected (A) Not Detected LAB MICROBIOLOGY METHOD 10/12/2024 7:[address] [facility] Swab Both anterior nares / Unknown Non-blood Collection / Unknown 10/12/2024 4:00 AM EDT 10/12/2024 4:46 AM EDT Miguel MOSES LAB MICROBIOLOGY - GENERAL ORD ERABLES Final Result Performing Organization Address [facility] Co de Phone Number [facility] [address] [place] [address], [place] [phone] * [place] Extremity Nonvascular Limited Left (10/12/2024 2:18 AM EDT) Anatomical Region Laterality Modality Extremity Left Ultrasound 10/12/2024 3:16 AM EDT Impressions 10/12/2024 3:16 AM EDT Mid to lower back soft tissue edema, skin thickening and phlegmon which may represent a developing abscess. This document has been electronically signed by: Dorian Lemons MD on 10/12/2024 03:16:03 Narrative 10/12/2024 3:16 AM EDT INDICATION: abscess Nonvascular ultrasound COMPARISON: None FINDINGS: Imaging obtained of the mid to lower back at the site of erythema. There is a poorly organized complex fluid collection with soft tissue hyperemia and skin thickening. Largest area measures up to 0.8 x 0.8 x 2.1 cm. Procedure Note Dorian Lemons MD - 10/12/2024 INDICATION: abscess Nonvascular ultrasound COMPARISON: None FINDINGS: Imaging obtained of the mid to lower back at the site of erythema. There is a poorly organized complex fluid collection with soft tissue hyperemia and skin thickening. Largest area measures up to 0.8 x 0.8 x2.1 cm. IMPRESSION: Mid to lower back soft tissue edema, skin thickening and phlegmon which may represent a developing abscess. This document has been electronically signed by: Lindsay Rudolph 10/12/2024 03:16:03 Jarret MOSES IMG US PROCEDURES Final Result * (ABNORMAL) Lactate, with reflex (10/12/2024 1:24 AM EDT) Only the most recent of2 resultswithin the time period is included. LACTIC ACID 2.1(H) 0.4 - 2.0 mmol/L LAB CHEMISTRY METHOD 10/12/2024 2:[address] [facility] Blood Venous blood specimen / Unknown Venipuncture / Unknown 10/12/2024 1:24 AM EDT 10/12/2024 1:36 AM EDT Laura MOSES LAB BLOOD ORDERABLES Final Re sult [facility] [address] [place] [address], * (ABNORMAL) Drug abuse screen 8a panel, urine (10/12/2024 12:03 AM EDT) Amphetamine Screen, Ur Negative Negative LAB CHEMISTRY METHOD 1:[address] [facility] Comment:Certain OTC medicati ons containing ephedrine, phenylephrine, pseudoephedrine and phenylpropanolamine can cause false positive results. Barbiturate Screen, Ur Negative Negative LAB CHEMISTRY METHOD 5 1:25 AM [facility] Benzodiazepine Screen, Ur Negative Negative LAB CHEMISTRY METHOD 5 1:25 AM [facility] Cocaine Screen, Ur Negative Negative LAB CHEMISTRY METHOD 5 1:25 AM [facility] Opiate Screen, Ur Positive(A ) Negative LAB CHEMISTRY METHOD 5 1:25 AM [facility] Cannabinoid (THC) Screen, Ur Negative Negative LAB CHEMISTRY METHOD 5 1:25 AM [facility] Comment:Specimens from patie nts taking pantoprazole sodium (Protonix) have been shown to produce false positive results. Oxycodone Screen, Ur Negative Negative LAB CHEMISTRY METHOD 5 1:25 AM [facility] Fentanyl, Ur Negative Negative LAB CHEMISTRY METHOD 5 1:25 AM [facility] Urine Urine specimen obtained by clean catch procedure / Unknown Non-blood Collection / Unknown 10/12/2024 12:03 AM EDT 10/12/2024 12:57 AM T [facility] - 10/12/2024 1:25 AM EDT Assay cutoffs: Amphetamines ? 1000 ng/mL Barbiturates ?200 ng/mL Benzodiazepines ?? 200 ng/mL Cocaine ? 300 ng/mL Fentanyl ?1 ng/mL Opiates ? 300 ng/mL Oxycodone ? 100 ng/mL THC ?50 ng/mL Semi-quantitative assay for screening purposes only. Unconfirmed screening result should not be used for non-medical purposes. *ALTERNATE METHOD CONFIRMATION DONE UPON REQUEST ONLY* us Laura MOSES LAB URINE ORDERABLES Final Re sult Performing Organization Address City/[facility]/ZIP Co de Phone Number [facility] [address] [place] [address], [place] [phone] * Blood Culture, Peripheral Draw #1 (10/11/2024 10:33 PM EDT) Only the most recent of2 resultswithin the time period is included. Pathologist [facility] Culture, Blood No growth at 5 days 10/16/2024 11:[address] [facility] Blood Venous blood specimen / Unknown Venipuncture / Unknown 10/11/2024 10:33 PM EDT 10/11/2024 10:40 PM EDT us Garrett MOSES LAB MICROBIOLOGY - GENERA L ORDERABLES Final Result Performing Organization Address [facility]/ZIP Co de Phone Number [facility] [address] [place] [address], [place] [phone] * Comprehensive metabolic panel (10/11/2024 10:01 PM EDT) [facility] Sodium 142 133 - 145 mmol/L LAB CHEMISTRY METHOD 10/11/2024 10:32 PM [facility] Potassium 3.5 3.5 - 5.5 mmol/L LAB CHEMISTRY METHOD 10/11/2024 10:32 PM [facility] Chloride 105 96 - 110 mmol/L LAB CHEMISTRY METHOD 10/11/2024 10:32 PM [facility] CO2 29 21 - 32 mmol/L LAB CHEMISTRY METHOD 10/11/2024 10:32 PM [facility] Anion Gap 8 3 - 11 LAB CHEMISTRY METHOD 10/11/2024 10:32 PM [facility] Glucose 99 70 - 100 mg/dL LAB CHEMISTRY METHOD 10/11/2024 10:32 PM [facility] BUN 5 5 - 25 mg/dL LAB CHEMISTRY METHOD 10/11/2024 10:32 PM [facility] Creatinine 0.76 0.70 - 1.30 mg/dL LAB CHEMISTRY METHOD 10/11/2024 10:32 PM [facility] eGFR 131 >=60 mL/min/1. 73m2 LAB CHEMISTRY METHOD 10/11/2024 10:32 PM [facility] Comment:Calculation based on the??Chronic Kidney Disease Epidemiology Collaboration (CKD-EPI) equation refit??without adjustment for race. BUN/Creatinine Ratio 6.6 LAB CHEMISTRY METHOD 10/11/2024 10:32 PM [facility] Calcium 10.1 8.5 - 10.5 mg/dL LAB CHEMISTRY METHOD 10/11/2024 10:32 PM [facility] AST (SGOT) 14 10 - 42 unit/L LAB CHEMISTRY METHOD 10/11/2024 10:32 PM [facility] ALT (SGPT) 26 10 - 60 unit/L LAB CHEMISTRY METHOD 10/11/2024 10:32 PM [facility] Alkaline Phosphatase 89 42 - 121 unit/L LAB CHEMISTRY METHOD 10/11/2024 10:32 PM [facility] Total Protein 8.0 6.0 - 8.0 g/dL LAB CHEMISTRY METHOD 10/11/2024 10:32 PM [facility] Albumin 4.2 3.2 - 5.0 g/dL LAB CHEMISTRY METHOD 10/11/2024 10:32 PM [facility] Total Bilirubin 0.6 0.0 - 1.4 mg/dL LAB CHEMISTRY METHOD 10/11/2024 10:32 PM [facility] Blood Venous blood specimen / Unknown Venipuncture / Unknown 10/11/2024 10:01 PM EDT 10/11/2024 10:08 PM EDT Víctor Ramirez MD LAB BLOOD ORDERABLES Final Result [facility] [address] [place] [address], * ECG 12 lead (10/11/2024 9:49 PM EDT) Ventricular Rate ECG 118 BPM GEMUSE Atrial Rate 118 BPM GEMUSE P-R Interval 136 ms GEMUSE QRS Duration 78 ms GEMUSE Q-T Interval 292 ms GEMUSE QTc 409 ms GEMUSE P Wave [place] 54 degrees GEMUSE R [place] 66 degrees GEMUSE T [place] -5 degrees GEMUSE ECG Interpretation Sinus tachycardia Abnormal QRS-T angle, consider primary T wave abnormality Abnormal ECG No previous ECGs available Confirmed by MD Jaxon, [facility] ([id number] on 10/13/2024 8:09:56 AM GEMUSE 10/11/2024 9:49 PM EDT 10/13/2024 8:09 AM EDT us Víctor Ramirez MD ECG ORDERABLES Final Resul t Performing Organization Address City/[facility]/ZIP Co de Phone Number GEMUSE from Last 3 Months Additional Health Concerns Infection Onset 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 Do not modify or discontinue any currently active code status orders. Care Teams Global Sales Director Relationship Specialty Start Date End Date Ting Mike PA [address] [place] [id number] PCP - General 10/11/24
--- OUTSIDE RECORDS SUMMARY | 2024-11-10 17:46 | XMS_ITS | Encounter Summary ---
Author Organization [facility] Address [address] [place] [id number] Phone Care Team Providers Care Radiologic Tech Name Role Phone Karmen Kirby MD Primary Care Provider [phone] Encounter Details Date Type Department Care Team (Late st Contact Info) Description 09/21/2009 Documentation [facility] Family Medicine [address] [place] [address] Family Medicine, Physician [address] [place] [address] Social History Tobacco Use Types Packs/Day Years [...] on filedocumented in this encounter Care Teams Radiologic Tech Relationship Specialty Start Date End Date Karmen Kirby MD [address] [place] [address] PCP - General Pediatrics 06/29/23 11/13/23 documented as of this encounter
--- OUTSIDE RECORDS SUMMARY | 2024-11-10 17:46 | XMS_ITS | Encounter Summary ---
Author Organization [facility] Address [address] [place] [id number] Phone Care Team Providers Care Contract Accountant Name Role Phone Karmen Kirby MD Primary Care Provider [phone] Encounter Details Date Type Department Care Team (Late st Contact Info) Description 03/03/2017 Conversion Encounter [facility] [address] [place] [address] Social History Tobacco Use Types Packs/Day Years Used Date Smoking Tobacco: Never Comments:Never smoker Sex and Gender Information Value Date Recorded Sex Assigned at Male 12/29/2020 4:01 PM EDT Legal Sex Male 5:12 PM EDT Gender Identity Male 12/29/2020 4:01 PM EDT Sexual Orientation Straight 12/21/2019 8: 28 PM EDT documented as of this encounter Plan of Treatment Not on file documented as of this encounter Visit Diagnoses Not on filedocumented in this encounter Care Teams Contract Accountant Relationship Specialty Start Date End Date Karmen Kirby MD [address] [place] [address] PCP - General Pediatrics 06/29/23 11/13/23 documented as of this encounter
[2024-11-10 18:13] VITALS: BP 128/80; PULSE 62; RESP 16; O2SAT 98
[2024-11-10 18:34] VITALS: BP 128/80; PULSE 62; RESP 16; TEMP 36.1; O2SAT 98
== END 2024-11-10 18:35 | disposition home or self-care (01) ==
PROVIDERS: Emergency Provider Emergency Medicine; PCP Internal Medicine
DX: R45.6 Violent behavior (principal); F84.0 Autistic disorder
CPT/HCPCS: 99283; 99284